=== PATIENT | female | born 1945 | race Two or more races ===

== ENCOUNTER 2024-10-20 09:37 | Outpatient (RCR) | payer MEDICAID, SELFPAY ==
--- NOTE | 2024-10-21 00:34 | CTCFLWUP_ITS ---
Patient: EDENILSON US : 1945 Page 3 of 4 FOLLOW UP NOTE DATE OF SERVICE: 10/20/2024 NAME: EDENILSON US ACCOUNT: [id number] : 1945 AGE: 79 INTERVAL HISTORY: Patient is doing well. She recently had a bone marrow biopsy. Patient is [place] Citizen-speaking and all c onversation was done with the help of street light cleaner Julian Edenilson. ONCOLOGY HISTORY: DIAGNOSIS: Acute myelomonocytic leukemia, not having achieved remission [ICD10] C92.50 DATE OF DIAGNOSIS: 12/01/2019 STAGE/TNM: Acute myeloid leukemia with NPM mutation TREATMENT HISTORY: Care?Plan Start?Date Cycle Day Intent Azacitadine 05/15/2020 1 28 Curative?(primary) KCL?20 06/15/2020 1 1 Palliative HISTORY OF PRESENT ILLNESS: Edenilson Elizabeth is a 79-year-old [place] speaking female with history of hypertension, hyperchol esterolemia and osteoporosis had a CBC drawn on 07/23/2019. WBC was 2.0, absolute neutrophil count w as 0.9. Hemoglobin 11.2, MCV 87, platelet count is 208,000. A hematology consultation is requested for neutropenia and leukopenia. 12/01/2019: WBC 1.7, ANC 0.7, hemoglobin 11.3, platelets 217,000. B12 467, folate more than 20.0. He patitis panel negative. ESR 19. LDH 180 12/28/2019: WBC 1.4, absolute neutrophil count 0.5, hemoglobin 11.1, platelets 207,000. 01/31/2020: WBC 1.2, absolute neutrophil count 0.3, immature cells 2%, hemoglobin 10.9, platelets 187, 000. Hepatitis panel negative. Iron saturation 27%. B12 361, folate more than 20.0. LDH 202, ESR 37. 01/31/2020: Ultrasound of the liver and spleen?liver measures 15.4 cm. The hepatic contour is smooth. No hepatosplenomegaly noted 02/29/2020: Bone marrow biopsy and aspiration- 03/05/2020: Patient received first cycle of azacitidine and venetoclax. 05/15/2020: Patient received second cycle of azacitidine and venetoclax. 05/31/2020: Bone marrow biopsy and aspiration? 06/20/2020: Patient received third cycle of venetoclax and azacitidine. 07/24/2020?08/06/2020: Patient was admitted to [facility] for sepsis. 09/29/2020: Patient completed fourth cycle of Vidaza in [place]. 08/27/2022: Bone marrow biopsy and aspiration? 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 acyclovir - 400 mg 1 tab Twice a Day 2. decitabine-cedazuridine - 35-100 mg 1 tab As directed 3. esomeprazole magnesium - 40 mg Capsule 4. levothyroxine - 88 mcg 1 Capsule Daily 5. losartan - 100 mg 1 tab Daily 6. Tibsovo - 250 mg 1 tab Daily 7. voriconazole - 200 mg Twice a Day Medications Last Reconciled by Edenilson Pagan MA on 10/20/2024 ALLERGIES: No Known Drug Allergies REVIEW OF SYSTEMS: A complete 14-point review of systems was performed and is negative except as noted in interval histo ry. PHYSICAL EXAMINATION: VITAL SIGNS: Temperature?98, B/P?150/84, Oxygen?Saturation?98% Weight?154.2?lbs PAIN: 0 - No pain ECOG Performance Status: 1 - Symptomatic; ambulatory; restricted in strenuous activity GENERAL APPEARANCE: Appears well, in no apparent distress, appropriately interactive. HEENT: Normocephalic, no temporal wasting, normal conjunctiva, no scleral icterus, normal hearing, li ps without lesions, neck normal range of motion. CARDIOVASCULAR: Not assessed. PULMONARY: Normal respiratory effort, no respiratory distress or use of accessory muscles, speaking i n full sentences, no tachypnea. EXTREMITIES: No pedal edema or cyanosis. SKIN: Normal skin appearance. NEUROLOGIC: Alert and oriented x4. PSHYCHIATRIC: Appropriate affect, mood normal, behavior normal, intact thought and speech. LABORATORY DATA: I have personally reviewed and interpreted each of the patient?s relevant lab tests, abnormal finding s are below: Date 07/24/23 ??GLUCOSE,RANDOM?(mg/dL) 99 ??BLOOD?UREA?NITROGEN?(mg/dL) 16 ??CREATININE?(mg/dL) 1.00 ??SODIUM?(mmol/L) 142 ??POTASSIUM?(mmol/L) 4.0 ??CHLORIDE?(mmol/L) 107 ??CrCl?(CandG)?(ml/min) 46.40 ??AST/SGOT?(Unit/L) 20 ??ALT/SGPT?(Unit/L) 10 ??ALKALINE?PHOSPHATASE?(Unit/L) 192?H ??BILIRUBIN,?TOTAL?(mg/dL) 0.3 ??PROTEIN?TOTAL?(gm/dl) 6.5 ??ALBUMIN,?SERUM?(gm/dl) 4.1 ??GLOBULIN?(gm/dl) 2.4 ??ALBUMIN/GLOBULIN?RATIO 1.7 ??CALCIUM,?SERUM?(mg/dL) 9.1 ??CALCIUM?SERUM?(CORRECTED)?(mg/dL) 9.1 ASSESSMENT/PLAN: 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 Roberto Ms. Us had bone marrow biopsy and aspiration done September 2024. She is in complete r emission. 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 Hypertension follow with the PCP Hypercholesterolemia follow with the PCP History of osteoporosis. Follow with the PCP RTC in 2 months CBC EKG RETURN TO CLINIC: 2 months with us but advised to follow-up with Dr. Roberto closely. BILLING AND COMPLIANCE: I reviewed external records from providers outside my specialty as summarized above. I spent a total of 50 minutes on this patient?s care on the day of their visit excluding time spent related to any bi lled procedures. This time includes time spent with the patient as well as time spent documenting in the medical record, reviewing patients records and tests, obtaining history, placing orders, communi cating with other healthcare professionals, counseling the patient, family or caregiver, and/or care coordination for the diagnoses above. Electronically Signed by: Erick Bolton MD T: 12:32 AM CC: PCP: Shama Liao Referring: Shama Liao This document was completed utilizing speech recognition software. Grammatical errors, random word in sertions, pronoun errors, and incomplete sentences are an occasional consequence of this system due t o software limitations, ambient noise, and hardware issues. Any formal questions or concerns about th e content, text or information contained within the body of this dictation should be directly address ed to the provider for clarification.
== END 2024-11-12 23:59 | disposition home or self-care (01) ==
LOC: SCTC 09:37
PROVIDERS: PCP Registered Nurse Community Health; Referring Provider Registered Nurse Community Health; Visit Provider Internal Medicine Hematology & Oncology
DX: C92.01 Acute myeloblastic leukemia, in remission (principal)
CPT/HCPCS: Q3014

== ENCOUNTER → 2024-11-02 | Outpatient (CLI) | payer MEDICAID, SELFPAY ==
--- NOTE | 2024-11-02 09:44 | EKG_ITS ---
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 : 1945 Requested By: Erick Bolton Order Number: [id number] Reading MD: Erick Bolton Measurements Intervals [place] Rate: 52 P: 68 NV: 164 QRS: -16 QRSD: 111 T: 56 QT: 450 QTc: 420 Interpretive Statements SINUS BRADYCARDIA LOW QRS VOLTAGE IN PRECORDIAL LEADS LEFT VENTRICULAR HYPERTROPHY AND ST-T CHANGE POSSIBLE ANTEROSEPTAL MYOCARDIAL INFARCTION , OF INDETERMINATE AGE Compared to ECG 04/26/2024 07:44:29 Low QRS voltage now present Left ventricular hypertrophy now present ST (T wave) deviation now present Myocardial infarct finding now present Sinus rhythm no longer present Left-axis deviation no longer present Left bundle-branch block no longer present /store/S0/[id number]/ecg/[id number].pdf
== END | disposition home or self-care (01) ==
PROVIDERS: PCP Family Medicine; Referring Provider Internal Medicine Hematology & Oncology; Visit Provider Internal Medicine Hematology & Oncology
DX: C92.50 Acute myelomonocytic leukemia, not having achieved remission (principal)
CPT/HCPCS: 93005

== ENCOUNTER 2024-11-15 10:56 | Inpatient (IN) | payer MEDICAID, SELFPAY ==
[2024-11-15] VITALS (8 sets, daily range): BP systolic 82–123; BP diastolic 49–68; PULSE 70–105; RESP 18–98; TEMP 36.2–39.1; O2SAT 95–100; BMI 29.5; BMI 29.7
--- NOTE | 2024-11-15 11:28 | XR_ITS ---
Examination: PA lateral chest 2 views TECHNIQUE: Upright PA lateral chest 2 views Exam date and time: November 15, 2024 1137 hours INDICATIONS: Coughing weakness this week. FINDINGS: Mild prominence left ventricle Moderate vascular congestion No lobar pneumonia or pulmonary edema Prominent osteopenia IMPRESSION: Moderate vascular congestion
--- NOTE | 2024-11-15 11:29 | PD.EDRME ---
Rapid Medical Screening Exam RME Arrival date/time: 11/15/24 10:56 79-year-old female presents emergency department with complaints of generalized bodyaches and fever Sepsis workup initiated Chief Complaint: Flu Like Symptoms Vital signs: Vital Signs Temperature 102.4 F H 11/15/24 11:13 Pulse Rate 105 H 11/15/24 11:13 Respiratory Rate 22 H 11/15/24 11:13 Blood Pressure 112/68 11/15/24 11:13 Pulse Oximetry (%) 95 11/15/24 11:13 Oxygen Delivery Method Room Air 11/15/24 11:13
[2024-11-15 12:05] LABS: Lactate (Lactic Acid) 1.7 mMol/L (0.4-2.0)
[2024-11-15] MEDS: ACETAMINOPHEN 500 MG TABLET 1000 MG PO (12:07)
[2024-11-15 12:37] LABS: Alanine Aminotransferase 118 U/L (10-49); Albumin, Serum 4.3 gm/dL (3.4-4.8); Albumin/Globulin Ratio 1.5 (1.2-2.2); Alkaline Phosphatase 148 U/L (46-116); Anion Gap 8 (7-16); Aspartate Amino Transferase 131 U/L (0-34); BUN/Creatinine Ratio 19 Ratio (12-20); Bilirubin,Total 1.1 mg/dL (0.3-1.2); Blood Urea Nitrogen 26 mg/dL (9-23); Calcium 8.8 mg/dL (8.3-10.6); Calcium (Corrected) 8.8 mg/dL (8.5-10.1); Carbon Dioxide 25.8 mMol/L (20.0-31.0); Chloride 100 mMol/L (98-107); Creatinine (Component) 1.4 mg/dL (0.6-1.3); Estimated Creatinine Clearance 27.3 mL/min (>60); Globulin 2.8 gm/dL (2.3-3.5); Glucose 104 mg/dL (74-106); Osmolality,Calculated 272 (275-295); Potassium 4.5 mMol/L (3.4-5.1); Procalcitonin 7.77 ng/ml (0.0-0.49); Sodium 134 mMol/L (136-145); Total Protein 7.1 gm/dL (5.7-8.2); eGFR 38 See Note
[2024-11-15 12:49] LABS: Collection Type, Urine Clean Catch
[2024-11-15 13:01] LABS: Bilirubin,Urine Negative (Negative); Blood,Urine 1+ (Negative); Clarity,Urine Turbid (Clear/Hazy); Color,Urine Yellow (Lt Yel-Yel); Glucose, Urine Negative (Negative); Ketones,Urine Negative (Negative); Leukocyte Esterase,Urine Negative (Negative); Nitrite,Urine Negative (Negative); Protein,Urine 1+ (Neg - Trace); RBC,Urine 16 /hpf (0-3); Specific Gravity,Urine 1.022 (1.001-1.035); Squamous Epithelial Cell,Urine 1 /hpf (0-5); WBC,Urine 2 /hpf (0-5)
[2024-11-15 13:34] LABS: Basophils % (Auto) 0 % (0-2.5); Eosinophils % (Auto) 0 % (0-10); Hematocrit 23.9 % (36.0-46.0); Immature Granulocytes % (Auto) 6 % (0-0); Immature Granulocytes Auto 0.02 Thou/mm3 (0.00-0.00); Lymphocytes # (Auto) 0.2 Thou/mm3 (1.0-4.8); Lymphocytes % (Auto) 57 % (10-50); Mean Corpuscular HGB Conc 33.1 g/dl (31.0-37.0); Mean Corpuscular Hemoglobin 30.6 pg (25.0-35.0); Mean Corpuscular Volume 93 fL (80-100); Monocytes % (Auto) 9 % (0-12); Neutrophils # (Auto) 0.1 Thou/mm3 (1.8-7.7); Neutrophils % (Auto) 29 % (37-80); Nucleated Red Blood Cell % 0 /100 WBC (0); RDW Standard Deviation 54.8 fL (36.4-46.3); Red Blood Count 2.58 Miln/mm3 (4.00-5.20)
[2024-11-15 13:43] LABS: Hemoglobin 7.9 g/dL (12.0-16.0); Platelet Count 67 Thou/mm3 (140-440); White Blood Count < 0.4 Thou/mm3 (3.6-11.0)
[2024-11-15 13:54] LABS: Slide Review Platelets confirmed
[2024-11-15] MEDS: PIPER/TAZO 3.375 GM 3.375 GM/50 ML BAG IV ×2 (15:03→22:16)
--- NOTE | 2024-11-15 15:08 | PC.NURSE ---
DR. BOOKER AND TEAM AT BEDSIDE ASSESSING PT.
--- NOTE | 2024-11-15 15:29 | XR_ITS ---
Examination: Ultrasound soft tissue right axilla TECHNIQUE: Sonographic images soft tissue right axilla Exam date and time: November 15, 2024 1558 hours INDICATIONS: Right axillary redness swelling and pain this week FINDINGS: No cystic or solid mass, no abscess depicted Mild skin edema IMPRESSION: No cystic or solid mass, no abscess identified
--- NOTE | 2024-11-15 15:39 | ESHP_ITS ---
<Statement entered by Tamy Cohen MD - 11/15/24 17:57> I discussed with and supervised my co-resident involved in the care of this patient. I agree with the assessment and plan as documented above. Patient is a 79 year old female with PMH of acute myelomonocytic leukemia on chemotherapy, aortic valve thrombosis, HTN HLD who presents to the ER for flu- like symptoms. She endorses some sick contacat home. On physical exam, she has some mild subcutaneous fluctuance/induration in the right axilla area, no weepage or drainage. Labs significant for pancytopenia and LIZ. Patient's oncologist, Dr. Martin, was called by the ER and the medicine team, and decision was made to admit the patient for neutropenic fever. We will treat her with IV antibiotics. Regarding source of infection, we will check urine, CXR, and ultrasound of the right axilla and follow up on the cultures. We will give her IVF for her LIZ. Tamy Cohen MD PGY-3 Documentation for date of: 11/15/24 HPI History of Present Illness Chief complaint: flu-like Sx, R axillary region erythema/swelling History of present illness: 79-year-old female with past medical history of acute myelomonocytic leukemia currently on chemotherapy, aortic valve thrombosis, hypertension, hypothyroidism, hyperlipidemia, and osteoporosis was admitted to the hospital on 11/15/2024 after coming to the ED with complaints of flulike symptoms. During assessment patient stated that around 8 days ago she started having some productive cough with subjective fevers as well as body aches. Daughter stated that she was sick and patient and her live together. Patient stated that yesterday she started having fevers and some nausea and today she decided to come to the ER as she was having a lot of discomfort in her right axillary area and was tender and red. Patient stated that she has not missed any doses of her prophylactic medications or of her chemotherapy. She denied having any vomiting at this time, burning sensation with urination, diarrhea, blood in the stools, shortness of breath, or chest pain. Spoke with patient's oncologist and stated that patient could be managed with broad-spectrum antibiotics for her fever, continue her prophylactic medications, and if patient does need blood transfusion it should be irradiated blood products. She also mentioned that patient does not need chemotherapy during this hospital stay. ED course: Initially patient came in tachycardic tachypneic and febrile. Initial labs were relevant for neutropenia (less than 0.4), low hemoglobin (10.9), thrombocytopenia (67), absolute neutrophil count of 0.1, LIZ (creatinine 1.4), transaminitis (AST 131, ALT 118, alkaline phosphatase 148), and elevated procalcitonin at 7.77. Initial imaging included chest x-ray which showed moderate vascular congestion and right upper extremity ultrasound which showed no cystic or solid mass nor abscess. PMH: As above Social Hx: Denies any smoking, drugs, or alcohol Medications: Acyclovir 400 mg twice daily, voriconazole 200 mg twice daily, levothyroxine 88 mcg daily, esomeprazole 40 mg daily, and rest of medications as pending reconciliation. Review of Systems Review of Systems Narrative Review of Systems: Constitutional: Denies sweats, Denies weight loss/gain, Admits fever, Denies chills. HEENT: Denies hearing loss, Denies ear pain, Denies postnasal drip, Denies double vision, Denies blurry vision. Respiratory: Denies shortness of breath, Admits cough, Denies wheezing. Cardiovascular: Denies chest pain, Denies palpitations, Denies sudden loss of consciousness. GI: Denies blood in stool, Denies constipation, Denies abdominal pain, Denies difficulty swallowing, Admits nausea, Denies vomit. : Denies urinary incontinence, Denies pain while urinating, Denies increased urinary frequency. MSK: Denies joint pain, Denies joint swelling, Denies numbness, Admits R underarm swelling/pain. Skin: Denies rash, Denies itching, Denies easy bruising. Neuro: Denies headaches, Denies dizziness, Denies seizures. Past Medical History Past Medical History CARDIAC: Positive Hypercholesterolemia and Hypertension RESPIRATORY: Positive Pneumonia GASTROINTESTINAL: Positive Gall Bladder Disease REPRODUCTIVE: Positive Previous Pregnancies MUSCULOSKELETAL: Positive Arthritis and Osteoporosis HEMATOLOGIC: Positive Anemia and Leukemia PSYCHO/SOCIAL: Positive Anxiety OTHER HISTORY: Positive Blood Transfusions, Chemotherapy (SEPTEMBER 2021 LAST [place]), Measles and Cancer (LEUKEMIA) Family History FAMILY HISTORY: Positive Family Cardiac Disorders Social History SMOKING STATUS: Never smoker SUBSTANCE USE: does not use ALCOHOL: Never Travel History EBOLA RISK: No Exam Vital Signs Temp Pulse Resp BP Pulse Ox O2 Del Method 98.0 F 81 20 82/52 L 96 Room Air 11/15/24 14:32 11/15/24 14:04 11/15/24 14:04 11/15/24 14:04 11/15/24 14:04 11/15/24 14:04 Narrative Exam General: A/O x3, no acute distress, well-nourished, well-developed Eyes: PERRL, EOMI. Anicteric, vision grossly intact. Ears: No ear pain, no ear discharge, Hearing grossly intact. Nose: No nasal discharge. Mouth/Throat: Moist mucous membranes, no redness, no lesions. Neck: Neck supple, non-tender, no cervical lymphadenopathy. Lungs: Clear STACEY to auscultation and percussion, No accessory muscle use. Cardio: Normal S1/S2, regular rhythm, no murmurs, no JVD Abdomen: Soft, non-tender, no palpable masses, peristalsis present, no guarding or rebound. Extremities: Symmetrical, no significant deformities, no peripheral edema , non-tender, peripheral pulses presents. Skin: No rashes, no lesions, warm to touch. Right axillary area erythema with mild edema and nonfluctuating mass centrally, tender to light palpation. Neuro: No focal neurological deficits. Psych: Cooperative, appropriate mood and effect. Results: Labs 11/18/24 04:39 11/18/24 04:39 Labs: Short CBC 11/15/24 Range/Units 13:08 WBC < 0.4 L* (3.6-11.0) Thou/mm3 Hgb 7.9 L (12.0-16.0) g/dL Hct 23.9 L (36.0-46.0) % Plt Count 67 L (140-440) Thou/mm3 BMP 11/15/24 11:49 Sodium 134 L Potassium 4.5 Chloride 100 Carbon Dioxide 25.8 BUN 26 H Creatinine 1.4 H Glucose 104 Calcium 8.8 Liver Function 11/15/24 Range/Units 11:49 Total Bilirubin 1.1 (0.3-1.2) mg/dL AST 131 H (0-34) U/L ALT 118 H (10-49) U/L Alkaline Phosphatase 148 H (46-116) U/L Albumin 4.3 (3.4-4.8) gm/dL Urine 11/15/24 Range/Units 12:18 Urine Color Yellow (Lt Yel-Yel) Urine Clarity Turbid A (Clear/Hazy) Urine pH 7.0 (5.0-7.0) Ur Specific [place] 1.022 (1.001-1.035) Urine Protein 1+ A (Neg - Trace) Urine Glucose (UA) Negative (Negative) Quality Measures Quality Measures VTE prophylaxis Advance care planning discussed with:: patient and child Medications Home Medications and Allergies Home Medications ?Medication ?Instructions ?Recorded ?Confirmed ?Type acyclovir 200 mg capsule 400 mg PO BID 03/15/2011/15 History levofloxacin 250 mg tablet 500 mg PO QDAY PRN ANC IS B LOW 500 03/15/20 10/28/23 History voriconazole 200 mg tablet (Vfend) 200 mg PO Q12H 01/0111/15/24 History carisoprodol 250 mg tablet 1 tab PO BID PRN Pain 03/2510/28/23 History diclofenac sodium 1 % topical gel 1 ea topical QID 10/28/23 History lidocaine 5 % topical patch 1 patch topical Q12H 03/2510/28/23 History losartan 100 mg tablet 1 tab PO QDAY PRN SBP 160 11/15/24 History acyclovir 400 mg tablet 400 mg PO BID 07/26/2310/28 History acyclovir 400 mg tablet mg 07/26/23 10/28/23 History levothyroxine 88 mcg tablet 88 mcg PO QDAY 07/26/23 History levothyroxine 88 mcg tablet 88 mcg PO QDAY 11/15/24 History (Synthroid) Allergies Allergy/AdvReac Type Severity Reaction Status Date / Time milk Allergy Verified 11/16/24 07:36 eggs Allergy Uncoded 11/16/24 07:36 Visit Medications Acetaminophen (Acetaminophen 325 Mg Tablet) 650 mg PO Q6H PRN PRN Reason: pain and Fever >100.4 Stop: 12/15/24 15:22 Hydrocodone Bitart/Acetaminophen (Hydrocodone/Apap 5/325 Tablet) 1 tab PO Q4HR PRN PRN Reason: PAIN SCALE 4-10(Mod-Sev Stop: 11/20/24 15:22 Acyclovir (Acyclovir 200 Mg Capsule) 400 mg PO BID [facility] Stop: 11/25/24 15:34 Heparin Sodium (Porcine) (Heparin Sod Inj 5000 Unit/Ml Vial) 5,000 unit SC BID [facility] Stop: 11/29/24 20:59 Sodium Chloride (Ns) 1,000 mls @ 75 mls/hr IV .[id number] [facility] Stop: 12/15/24 15:29 Piperacillin/Tazobactam/Dextrose (Zosyn) 3.375 gm in 50 mls @ 100 mls/hr IV Q8HR [facility] Stop: 11/22/24 22:59 Sodium Chloride (Ns) 1,000 mls @ 999 mls/hr IV .Q1H1M ONE Stop: 11/15/24 16:29 Levothyroxine Sodium (Levothyroxine Sodium 88 Mcg Tablet) 88 mcg PO ACBR [facility] Stop: 12/16/24 05:59 Ondansetron HCl (Ondansetron Inj 2 Mg/Ml Inj 2 Ml) 4 mg IV Q6H PRN; Protocol PRN Reason: NAUSEA OR VOMITING Stop: 12/15/24 15:22 Pantoprazole Sodium (Pantoprazole 40 Mg Tablet) 40 mg PO QDAY [facility] Stop: 12/16/24 08:59 Pharmacy Consult (Vancomycin Pharmacy To Dose 1 Each Each) 1 each IV QDAY PRN PRN Reason: CONSULT Stop: 12/15/24 15:29 Sennosides (Senna Tablet) 1 tab PO QDAY PRN; Protocol PRN Reason: constipation Stop: 12/15/24 15:22 Voriconazole (Voriconazole 200 Mg Tablet) 200 mg PO BID [facility] Stop: 11/22/24 20:59 Discontinued Medications Acetaminophen (Acetaminophen 500 Mg Tablet) 1,000 mg PO X1 ONE Stop: 11/15/24 11:29 Last Admin: 11/15/24 12:07 Dose: 1,000 mg Vancomycin HCl 1,000 mg/ (Sodium Chloride) 250 mls @ 150 mls/hr IV X1 ONE Stop: 11/15/24 15:57 Piperacillin/Tazobactam/Dextrose (Zosyn) 3.375 gm in 50 mls @ 100 mls/hr IV X1 ONE Stop: 11/15/24 14:46 Last Admin: 11/15/24 15:03 Dose: 100 mls/hr Acyclovir Sodium 700 mg/ (Sodium Chloride) 114 mls @ 100 mls/hr IV Q12HR [facility]; Protocol Stop: 11/15/24 15:39 Acyclovir Sodium 700 mg/ (Sodium Chloride) 114 mls @ 100 mls/hr IV Q12HR [facility]; Protocol Stop: 11/22/24 20:59 Sodium Chloride (Sodium Chloride Rt 10% 15 Ml Nebu) 5 ml INH X1 ONE Stop: 11/15/24 15:24 Assessment & Plan Plan 79-year-old female with past medical history of 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 Patient came in with complaints of bodyaches and cough as well as erythema and tenderness of right axillary area. ? Patient goes to [facility] when she follows up with oncologist, but she also followed up with oncologist at our cancer center. ? Patient met SIRS criteria 4 out of 4 she also had an LIZ indicating endorgan damage ? qSOFA of 2 points indicating high risk of in-hospital mortality ?Checks x-ray only show mild vascular congestion ? Patient's WBC was less than 0.4 and absolute neutrophil count was 0.1 ?Ultrasound of right axillary area did not show any abscess, Sa cystic or solid mass. ? COVID and influenza were both negative Plan: ? Start patient on vancomycin, pharmacy dose, and Zosyn [11/15/2024?] ? Restarted patient's acyclovir 400 mg twice daily and voriconazole 200 mg twice daily ? Gave 1 L bolus of normal saline and maintain his fluids at 75 cc/hr - Consider CT of R UE ? Blood and urine cultures ordered ?RSV ordered ? Neutropenic precautions ? Will continue to monitor #Pancytopenia ? Patient came in with hemoglobin 7.9, platelets 67, and WBCs of less than 0.4 ?Patient has a history of pancytopenia per chart review Plan: ? Will transfuse hemoglobin less than 7, use irradiated blood products only ?Heparin subcu twice daily as patient has increased risk of thrombosis given history of cancer. ?Bleeding precautions ? Will continue to monitor closely #LIZ ? Patient came in with creatinine of 1.4 ? Base creatinine 0.7 Plan: ? IV fluids ? Renally dose medication ? Avoid nephrotoxic agents ? Will continue monitor #Transaminitis ? Patient came in with AST 131, ALT 118, alkaline phosphatase 148 ? Patient does not have any right upper quadrant pain and is not jaundiced Plan: ?Hepatitis panel ordered ? Will continue to monitor #Hx of hypertension ? Holding BP medication given setting of sepsis and patient's blood pressure has been on the lower end. #Hx of aortic valve thrombosis ? Pending medication reconciliation #Hx of GERD ? Start patient on pantoprazole #Hx of hypothyroidism ? Restarted patient's levothyroxine 88 mcg daily Disposition: Patient admitted to med/tele for neutropenic fever in setting of Sepsis, continue Zosyn/Vanco, pending blood and urine cx. Diet: Regular GI prophylaxis: protonix DVT prophylaxis: Heparin Sc BID Code: Full code Case disclosed with Attending Dr. Santiago and My senior Dr. Cohen PGY3. Reilly Aguilar PGY1 Attending Provider Attestation/Addendum Face to face evaluation was performed by me. I have personally seen and examined the patient. I discussed the assessment and plan with the entire medicine team. I reviewed available medical records, imaging studies, laboratory results. I agree with the above subjective data, objective findings, assessment and plan except as corrected by me or noted below Neutropenic fever Suspect R chest wall cellulitis Broad spectrum Abx with Zosyn and empiric Vanco for MRSA coverage follow culture data neutropenic precautions US MSK for R chest area infection- no abscess looks like- consider repeat imaging in few days
[2024-11-15] MEDS: SODIUM CHLORIDE RT 10% 15 ML NEBU 5 ML INH (16:38)
[2024-11-15] MEDS: VANCOMYCIN/NS 1 GM IVPB 200 ML IV (17:07)
[2024-11-15] MEDS: SODIUM CHLORIDE 0.9% 1000 ML 1,000 ML 75 ML IV (17:09)
[2024-11-15] MEDS: SODIUM CHLORIDE 0.9% 1000 ML 1,000 ML 999 ML IV (17:12)
--- NOTE | 2024-11-15 18:36 | PD.EDADULT ---
ED General RME/HPI General Chief complaint: Flu Like Symptoms Stated complaint: FEVER, CHILLS, SHAKING Arrival date/time: 11/15/24 10:56 RME / HPI RME / HPI narrative: 11/15/24 10:56 79-year-old female presents emergency department with complaints of generalized bodyaches and fever Sepsis workup initiated DR. NICOLAS BURT ED EVALUATION 79 year old female with history of acute myelomonocytic leukemia undergoing chemotherapy, hypertension, hypothyroidism, hyperlipidemia presents to the ED for evaluation of body aches, chills, and global weakness today. Reportedly symptoms began ~ 1 week ago and not improving. Accompanied by a painful rash just underneath her right armpit beginning yesterday. Denies fevers today, chest pain, shortness of breath, abdominal pain, vomiting, diarrhea, constipation, or urinary symptoms. Related Data Home Medications ?Medication ?Instructions ?Recorded ?Confirmed acyclovir 200 mg capsule 400 mg PO BID 03/15/20 10/28/23 levofloxacin 250 mg tablet 500 mg PO QDAY PRN ANC IS BLOW 500 03/15/20 10/28/23 voriconazole 200 mg tablet (Vfend) 200 mg PO Q12H 10/15/21 10/28/23 carisoprodol 250 mg tablet 1 tab PO BID PRN Pain 03/25/22 10/28/23 diclofenac sodium 1 % topical gel 1 ea topical QID 03/25/22 10/28/23 lidocaine 5 % topical patch 1 patch topical Q12H 03/25/22 10/28/23 losartan 100 mg tablet 1 tab PO QDAY PRN SBP 160 03/25/22 10/28/23 acyclovir 400 mg tablet 400 mg PO BID 07/26/23 10/28/23 acyclovir 400 mg tablet mg 07/26/23 10/28/23 levothyroxine 88 mcg tablet 88 mcg PO QDAY 07/26/23 10/28/23 Previous Rx's ?Medication ?Instructions ?Recorded albuterol sulfate 90 mcg/actuation 2 puff inhalation Q6H PRN 10/17/21 aerosol inhaler (ProAir HFA) shortness of breath or wheezing #6.7 grams hydrocodone 5 mg-acetaminophen 325 1 tab PO Q6H PRN pain #10 tabs 03/25/22 mg tablet Allergies Allergy/AdvReac Type Severity Reaction Status Date / Time No Known Allergies Allergy Verified 11/15/24 11:01 Review of Systems Review of Systems Narrative Review of Systems: Gen: No fever, no chills, no weight loss, +body aches, +chills, +global weakness EYES: No discharge, no visual changes, no pain HEENT: No ear pain, no congestion, no sore throat PULM: no shortness of breath, no cough, no congestion CV: No chest pain, no dyspnea on exertion, no palpitations, no chest tightness GI: No nausea, no vomiting, no diarrhea, no pain, no constipation : No frequency, no urgency,? no dysuria Musc/skel: No joint pain, no back pain Skin: +painful rash just below right armpit, no ecchymosis, no lesions Neuro: +global weakness, no headache Past Medical History Past Medical History CARDIAC: Positive Hypercholesterolemia and Hypertension RESPIRATORY: Positive Pneumonia GASTROINTESTINAL: Positive Gall Bladder Disease REPRODUCTIVE: Positive Previous Pregnancies MUSCULOSKELETAL: Positive Arthritis and Osteoporosis HEMATOLOGIC: Positive Anemia and Leukemia PSYCHO/SOCIAL: Positive Anxiety OTHER HISTORY: Positive Blood Transfusions, Chemotherapy (SEPTEMBER 2021 LAST [place]), Measles and Cancer (LEUKEMIA) Family History FAMILY HISTORY: Positive Family Cardiac Disorders Social History SMOKING STATUS: Never smoker SUBSTANCE USE: does not use Travel History EBOLA RISK: No ED Exam Narrative Physical exam: GENERAL APPEARANCE: AxOx4, no obvious distress, nontoxic appearing HEENT: NC, AT. MMM. EOMI, clear conjunctiva, oropharynx clear. NECK: Supple without lymphadenopathy. No stiffness or restricted ROM. HEART: Normal rate and regular rhythm, normal S1/S1, no m/r/g LUNGS: CTAB, moving air well. No crackles or wheezes are heard. ABDOMEN: Soft, nontender, nondistended with good bowel sounds heard. BACK: No midline C/T/L spine pain or deformity, No CVAT, no obvious deformity. EXTREMITIES: Without cyanosis, clubbing or edema. MUSCULOSKELETAL: FROM of all major joints, no chest tenderness NEUROLOGICAL: Grossly nonfocal. Alert and oriented, moving all 4 extremities. CN not formally tested but appear grossly intact. Skin: Warm and dry. Over the right anterior axillary line at the level of breast she has a 6cm x 3cm tender well demarcated rash with centralized blistering consisted with shingles. Course Quality Measures none Orders Category Date Time Status Bedside COVID-19 Antigen Test NOW Care 11/15/24 11:28 Active Bedside Influenza A&B Antigen Test NOW Care 11/15/24 11:28 Completed Neutropenic precautions NOW Care 11/15/24 14:20 Active Consult to Oncology Stat Cons 11/15/24 14:33 Ordered XR chest 2V Stat Exams 11/15/24 11:28 Completed Blood Culture (Lab) Stat Lab 11/15/24 11:55 Received CBC Stat Lab 11/15/24 13:08 Completed Comprehensive Metabolic Panel Stat Lab 11/15/24 11:49 Completed Lactate (Lactic Acid) Stat Lab 11/15/24 11:49 Completed Procalcitonin Stat Lab 11/15/24 11:49 Completed Urinalysis Stat Lab 11/15/24 12:18 Completed Urine Culture Stat Lab 11/15/24 12:18 Received Acetaminophen Tab [Tylenol ES Tab] Med 11/15/24 11:28 Discontinued 1,000 mg PO X1 ONE Acyclovir Inj [Zovirax Inj] 700 mg Med 11/15/24 14:30 Discontinued Sodium Chloride 0.9% [Ns] 100 ml IV Q12HR Acyclovir Inj [Zovirax Inj] 700 mg Med 11/15/24 21:00 Discontinued Sodium Chloride 0.9% [Ns] 100 ml IV Q12HR Piper/Tazo 3.375 gm [Zosyn] Med 11/15/24 14:17 Discontinued 3.375 gm in 50 ml IV X1 Vancomycin Inj 1,000 mg Med 11/15/24 14:18 Discontinued Sodium Chloride 0.9% 250 ml [Ns] 250 ml IV X1 Vital Signs Vital signs: Vital Signs Temperature 102.4 F H 11/15/24 11:13 Pulse Rate 105 H 11/15/24 11:13 Respiratory Rate 22 H 11/15/24 11:13 Blood Pressure 112/68 11/15/24 11:13 Pulse Oximetry (%) 95 11/15/24 11:13 Oxygen Delivery Method Room Air 11/15/24 11:13 Pulse ox is 95% on room air which is adequate. [facility] Patient data External records reviewed:: [facility] previous records (I reviewed Dr. Bolton note on 10/21/2024) Clinical information provided by:: patient and family Social determinants that could affect healthcare access:: none Patient has the following chronic illnesses:: acute myelomonocytic leukemia undergoing chemotherapy, hypertension, hypothyroidism, hyperlipidemia How is presenting disease/condition affected by chronic disease/condition?: exacerbated by Evaluation data The following diagnostics were reviewed and interpreted by me:: lab results and radiology exam(s) Lab and/or radiology exams considered but not ordered:: None Interpretation Summary: Ordering Physician: Kurtis Nascimento NP, NP Date of Service: 11/15/24 Procedure(s): XR chest 2V Accession Number(s): [id number] cc: Azam TORRES),Kurtis ELLSWORTH; Isidoro Austin MD~ Examination: PA lateral chest 2 views TECHNIQUE: Upright PA lateral chest 2 views Exam date and time: November 15, 2024 1137 hours INDICATIONS: Coughing weakness this week. FINDINGS: Mild prominence left ventricle Moderate vascular congestion No lobar pneumonia or pulmonary edema Prominent osteopenia IMPRESSION: Moderate vascular congestion Dictated By: Isidoro Austin MD Signed By: <Electronically signed by Isidoro Austin MD in OV> 11/15/24 1143 Ordering Physician: Reilly Preston MD Date of Service: 11/15/24 Procedure(s): US extremity nonvascular LMTD Accession Number(s): [id number] cc: Shama Liao BROKER; Isidoro Austin MD; Reilly Preston MD~ Examination: Ultrasound soft tissue right axilla TECHNIQUE: Sonographic images soft tissue right axilla Exam date and time: November 15, 2024 1558 hours INDICATIONS: Right axillary redness swelling and pain this week FINDINGS: No cystic or solid mass, no abscess depicted Mild skin edema IMPRESSION: No cystic or solid mass, no abscess identified Dictated By: Isidoro Austin MD Signed By: <Electronically signed by Isidoro Austin MD in OV> 11/15/24 1620 Medications Medications considered but not ordered:: None Medication administrations:: Medication Administration History Acetaminophen (Acetaminophen 325 Mg Tablet) 650 mg PO Q6H PRN PRN Reason: pain and Fever >100.4 Stop: 12/15/24 15:22 Hydrocodone Bitart/Acetaminophen (Hydrocodone/Apap 5/325 Tablet) 1 tab PO Q4HR PRN PRN Reason: PAIN SCALE 4-10(Mod-Sev Stop: 11/20/24 15:22 Acyclovir (Acyclovir 200 Mg Capsule) 400 mg PO BID [facility] Stop: 11/25/24 15:34 Heparin Sodium (Porcine) (Heparin Sod Inj 5000 Unit/Ml Vial) 5,000 unit SC BID [facility] Stop: 11/29/24 20:59 Sodium Chloride (Ns) 1,000 mls @ 75 mls/hr IV .[id number] [facility] Stop: 11/16/24 04:49 Last Admin: 11/15/24 17:09 Dose: 75 mls/hr Documented By: DUNIA Piperacillin/Tazobactam/Dextrose (Zosyn) 3.375 gm in 50 mls @ 12.5 mls/hr IV Q8HR [facility]; Protocol Stop: 11/22/24 22:59 Levothyroxine Sodium (Levothyroxine Sodium 88 Mcg Tablet) 88 mcg PO ACBR [facility] Stop: 12/16/24 05:59 Ondansetron HCl (Ondansetron Inj 2 Mg/Ml Inj 2 Ml) 4 mg IV Q6H PRN; Protocol PRN Reason: NAUSEA OR VOMITING Stop: 12/15/24 15:22 Pantoprazole Sodium (Pantoprazole 40 Mg Tablet) 40 mg PO QDAY [facility] Stop: 12/16/24 08:59 Pharmacy Consult (Vancomycin Pharmacy To Dose 1 Each Each) 1 each IV QDAY PRN PRN Reason: CONSULT Stop: 12/15/24 15:29 Sennosides (Senna Tablet) 1 tab PO QDAY PRN; Protocol PRN Reason: constipation Stop: 12/15/24 15:22 Voriconazole (Voriconazole 200 Mg Tablet) 200 mg PO BID [facility] Stop: 11/22/24 20:59 Discontinued Medications Acetaminophen (Acetaminophen 500 Mg Tablet) 1,000 mg PO X1 ONE Stop: 11/15/24 11:29 Last Admin: 11/15/24 12:07 Dose: 1,000 mg Documented By: SHOBHA Vancomycin HCl 1,000 mg/ (Sodium Chloride) 250 mls @ 150 mls/hr IV X1 ONE Stop: 11/15/24 15:57 Last Admin: 11/15/24 16:52 Dose: Not Given Documented By: GM Non-Admin Reason: Discontinued Piperacillin/Tazobactam/Dextrose (Zosyn) 3.375 gm in 50 mls @ 100 mls/hr IV X1 ONE Stop: 11/15/24 14:46 Last Infusion: 11/15/24 15:40 Dose: Infused Documented By: Admin: 11/15/24 15:03 Dose: 100 mls/hr Documented By: GM Acyclovir Sodium 700 mg/ (Sodium Chloride) 114 mls @ 100 mls/hr IV Q12HR KAVON; Protocol Stop: 11/15/24 15:39 Last Admin: 11/15/24 16:53 Dose: Not Given Documented By: GM Non-Admin Reason: Discontinued Acyclovir Sodium 700 mg/ (Sodium Chloride) 114 mls @ 100 mls/hr IV Q12HR [facility]AVON; Protocol Stop: 11/22/24 20:59 Sodium Chloride (Ns) 1,000 mls @ 999 mls/hr IV .Q1H1M ONE Stop: 11/15/24 16:29 Last Admin: 11/15/24 17:12 Dose: 999 mls/hr Documented By: GM Vancomycin/Sodium Chloride (Vancomycin/Ns 1 Gm Ivpb) 200 mls @ 120 mls/hr IV X1 ONE Stop: 11/15/24 17:39 Last Admin: 11/15/24 17:07 Dose: 120 mls/hr Documented By: GM Sodium Chloride (Sodium Chloride Rt 10% 15 Ml Nebu) 5 ml INH X1 ONE Stop: 11/15/24 15:24 Last Admin: 11/15/24 16:38 Dose: 5 ml Documented By: BA See above Consultations Consultation(s) initiated? (list below): Yes Consultation #1 (Physician, Specialty, Details): I spoke with oncologist. Dr. Bolton. Discussed patients PMHx, HPI, ED course, exam findings, labs, and radiology results. She agrees to consult. Consultation #2 (Physician, Specialty, Details): I spoke with hospitalist team. Discussed patients PMHx, HPI, ED course, exam findings, labs, and radiology results. The hospitalist agree to accept the patient for admission. Diagnosis Differential Diagnosis ED Complaint MDM: Anemia, viral illness, influenza, pneumonia Most likely diagnosis given after review of the tests above:: neutropenic fever severe neutropenia shingles Admission Indicated Admission indicated?: indicated Explain why admission is indicated or not indicated:: Further evaluation and management of neutropenic fever and severe . neutropenia Admission Request Was there a request for admission?: Yes Admission Attestation Admission request attestation: Discussed case with [] from Hospitalist service regarding admission. Discussed patients ED course, exam findings, labs, and radiology results. The Hospitalist [agrees,declines] to accept the patient for admission. Disposition Plan Disposition Plan: Admit Medical Decision Making Differential Diagnosis Differential Diagnosis: Anemia, viral illness, influenza, pneumonia Lab Data 11/15/24 13:08 11/15/24 11:49 Labs: Lab Results 11/15/24 11/15/24 11/15/24 Range/Units 11:49 12:18 13:08 WBC < 0.4 L* (3.6-11.0) Thou/mm3 RBC 2.58 L (4.00-5.20) Miln/mm3 Hgb 7.9 L (12.0-16.0) g/dL Hct 23.9 L (36.0-46.0) % MCV 93 (80-100) fL MCH 30.6 (25.0-35.0) pg MCHC 33.1 (31.0-37.0) g/dl RDW Std Deviation 54.8 H (36.4-46.3) fL Plt Count 67 L (140-440) Thou/mm3 Neut % (Auto) 29 L (37-80) % Lymph % (Auto) 57 H (10-50) % [place] % (Auto) 9 (0-12) % Eos % (Auto) 0 (0-10) % Baso % (Auto) 0 (0-2.5) % Neut # (Auto) 0.1 L (1.8-7.7) Thou/mm3 Lymph # (Auto) 0.2 L (1.0-4.8) Thou/mm3 [place] # (Auto) 0.0 (0.0-0.8) Thou/mm3 Eos # (Auto) 0.0 (0.0-0.5) Thou/mm3 Baso # (Auto) 0.0 (0.0-0.2) Thou/mm3 Immature Gran # (Auto) 0.02 H (0.00-0.00) Thou/mm3 Absolute Nucleated RBC 0.00 (0.00-0.00) Thou/mm3 Immature Gran % 6 H (0-0) % Nucleated RBC % 0 (0) /100 WBC Sodium 134 L (136-145) mMol/L Potassium 4.5 (3.4-5.1) mMol/L Chloride 100 (98-107) mMol/L Carbon Dioxide 25.8 (20.0-31.0) mMol/L Anion Gap 8 (7-16) BUN 26 H (9-23) mg/dL Creatinine 1.4 H (0.6-1.3) mg/dL Estim Creat Clear Calc 27.3 L (>60) mL/min eGFR 38 L (60 - ) See Note BUN/Creatinine Ratio 19 (12-20) Ratio Glucose 104 (74-106) mg/dL Calculated Osmolality 272 L (275-295) Lactic Acid 1.7 (0.4-2.0) mMol/L Calcium 8.8 (8.3-10.6) mg/dL Corrected Calcium 8.8 (8.5-10.1) mg/dL Total Bilirubin 1.1 (0.3-1.2) mg/dL AST 131 H (0-34) U/L ALT 118 H (10-49) U/L Alkaline Phosphatase 148 H (46-116) U/L Total Protein 7.1 (5.7-8.2) gm/dL Albumin 4.3 (3.4-4.8) gm/dL Globulin 2.8 (2.3-3.5) gm/dL Albumin/Globulin Ratio 1.5 (1.2-2.2) Procalcitonin 7.77 H (0.0-0.49) ng/ml Ur Collection Type Clean Catch Urine Color Yellow (Lt Yel-Yel) Urine Clarity Turbid A (Clear/Hazy) Urine pH 7.0 (5.0-7.0) Ur Specific [place] 1.022 (1.001-1.035) Urine Protein 1+ A (Neg - Trace) Urine Glucose (UA) Negative (Negative) Urine Ketones Negative (Negative) Urine Blood 1+ A (Negative) Urine Nitrite Negative (Negative) Urine Bilirubin Negative (Negative) Urine Urobilinogen (Auto) 2.0 (0.0-1.0) mg/dL Ur Leukocyte Esterase Negative (Negative) Urine RBC 16 H (0-3) /hpf Urine WBC 2 (0-5) /hpf Ur Squamous Epith Cells 1 (0-5) /hpf Urine Bacteria None (None) Misc Test Result Platelets confirmed Critical Care Time Critical Care Time Critical Care Time: Yes Total Critical Care Time (min.): 35 Attestation: The high probability of sudden, clinically significant deterioration in the patient's condition required the highest level of my preparedness to intervene urgently. The services I provided to this patient were to treat and/or prevent clinically significant deterioration. Services included the following: chart data review, reviewing nursing notes and/or old charts, documentation time, building performance consultant collaboration regarding findings and treatment options, medication orders and management, direct patient care, vital sign assessments and ordering, interpreting and reviewing diagnostic studies and lab tests. Aggregate critical care time includes only time during which I was engaged in work directly related to the patient's care, as described above, whether at bedside or elsewhere in the Emergency Department. It did not include time spent performing other reported procedures or the services of residents, students, nurses or physician assistants. Discharge Plan Plan Patient Disposition: Admit Acute Care w/in Hospital Problem List Clinical Impression: Neutropenic fever, Severe neutropenia, Shingles
[2024-11-15 18:49] LABS: Hepatitis A Antibody IgM Non Reactive (Non React); Hepatitis B Core Antibody IgM Non Reactive (Non React); Hepatitis B Surface Antigen Non Reactive (Non React); Hepatitis C Antibody Non Reactive (Non React)
[2024-11-15] MEDS: HEPARIN SOD INJ 5000 UNIT/ML VIAL SC (22:27)
[2024-11-15] MEDS: ACYCLOVIR 200 MG CAPSULE 400 MG PO (23:08)
[2024-11-16] VITALS (15 sets, daily range): BP systolic 110–159; BP diastolic 60–84; PULSE 68–88; RESP 16–98; TEMP 36.5–38.2; O2SAT 95–98; BMI 29.9
[2024-11-16] MEDS: LEVOTHYROXINE SODIUM 88 MCG TABLET PO (05:40)
[2024-11-16] MEDS: PIPER/TAZO 3.375 GM 3.375 GM/50 ML BAG IV ×3 (05:41→22:01)
[2024-11-16 06:12] LABS: Basophils % (Auto) 0 % (0-2.5); Eosinophils % (Auto) 4 % (0-10); Immature Granulocytes % (Auto) 0 % (0-0); Lymphocytes # (Auto) 0.4 Thou/mm3 (1.0-4.8); Lymphocytes % (Auto) 78 % (10-50); Mean Corpuscular HGB Conc 33.2 g/dl (31.0-37.0); Mean Corpuscular Hemoglobin 30.6 pg (25.0-35.0); Mean Corpuscular Volume 92 fL (80-100); Monocytes % (Auto) 4 % (0-12); Neutrophils # (Auto) 0.1 Thou/mm3 (1.8-7.7); Neutrophils % (Auto) 15 % (37-80); Nucleated Red Blood Cell % 0 /100 WBC (0); RDW Standard Deviation 55.6 fL (36.4-46.3); Red Blood Count 2.09 Miln/mm3 (4.00-5.20)
[2024-11-16 06:15] LABS: Hematocrit 19.3 % (36.0-46.0); Hemoglobin 6.4 g/dL (12.0-16.0); Platelet Count 55 Thou/mm3 (140-440); White Blood Count 0.6 Thou/mm3 (3.6-11.0)
[2024-11-16 07:07] LABS: Alanine Aminotransferase 61 U/L (10-49); Albumin, Serum 3.5 gm/dL (3.4-4.8); Albumin/Globulin Ratio 1.5 (1.2-2.2); Alkaline Phosphatase 107 U/L (46-116); Anion Gap 9 (7-16); Aspartate Amino Transferase 45 U/L (0-34); BUN/Creatinine Ratio 21 Ratio (12-20); Bilirubin,Total 0.5 mg/dL (0.3-1.2); Blood Urea Nitrogen 23 mg/dL (9-23); Calcium 8.2 mg/dL (8.3-10.6); Calcium (Corrected) 8.6 mg/dL (8.5-10.1); Carbon Dioxide 21.8 mMol/L (20.0-31.0); Chloride 108 mMol/L (98-107); Creatinine (Component) 1.1 mg/dL (0.6-1.3); Estimated Creatinine Clearance 33.9 mL/min (>60); Globulin 2.3 gm/dL (2.3-3.5); Glucose 82 mg/dL (74-106); Magnesium 1.6 mg/dL (1.6-2.6); Osmolality,Calculated 280 (275-295); Potassium 3.9 mMol/L (3.4-5.1); Sodium 139 mMol/L (136-145); Thyroid Stimulating Hormone 5.04 uIU/mL (0.55-4.78); Total Protein 5.8 gm/dL (5.7-8.2); eGFR 50 See Note
[2024-11-16 07:23] LABS: Cardiac Risk Estimate 8.5 RATIO (3.7-5.6); Cholesterol 153 mg/dL (132-200); HDL Cholesterol 18 mg/dL (40-60); LDL Cholesterol,Calculated 95 mg/dL (0-130); Triglycerides 199 mg/dL (30-150)
[2024-11-16] MEDS: PANTOPRAZOLE 40 MG TABLET PO ×2 (08:22)
[2024-11-16 08:38] LABS: Respiratory Syncytial Virus Ag Negative (Negative)
--- NOTE | 2024-11-16 09:40 | PC.SS ---
Patient Monie Elizabeth is a 79 Year old female admitted for Neutropenic fever, Sepsis 2/2, Cellulitis. SS contacted patient's daughter, Florinda Horner via phone in order to complete ADL's independently. Florinda reports she is surrogate decision maker [phone]. She reports patient utilizes a Cane to assist with ambulation as well as utilizes a FWW when she away from home. Patient is able to complete all ADL's independently. Choice of pharmacy is [facility]. Patient's PCP is Amador Joshua. At time of discharge patient will return home. Patient's daughter will provide transportation. Next of kin: Florinda Gooden Discharge Plan: Home
[2024-11-16 09:59] LABS: Free T4 (Free Thyroxine) 1.45 ng/dL (0.89-1.76)
[2024-11-16] MEDS: ACYCLOVIR 200 MG CAPSULE 400 MG PO ×2 (10:07→22:01)
[2024-11-16] MEDS: VORICONAZOLE 200 MG TABLET PO ×2 (10:07→22:01)
[2024-11-16 11:18] LABS: Slide Review Platelets confirmed
[2024-11-16 11:21] LABS: Path Review Blood Smear Sent to Pathologist
[2024-11-16] MEDS: Vancomycin Inj 750 MG in SODIUM CHLORIDE 0.9% 250 ML 250 ML 200 MG IV (13:19)
--- NOTE | 2024-11-16 13:31 | ESPR_ITS ---
<Statement entered by Tamy Cohen MD - 11/16/24 15:27> I discussed with and supervised my co-resident involved in the care of this patient. I agree with the assessment and plan as documented above. Patient seen at bedside. Hemoglobin dropped to 6.4, so a unit of irradiated PRBC ordered. Patient had fever earlier this afternoon, so repeat cultures ordered. Initial cultures from admission are pending. Rash over right axilla stable in appearance, mild tenderness to palpation. Continuing IV antibiotics. LIZ improved. Will start neuprogen, per oncologist recommendation. Tamy Cohen MD PGY-3 Documentation for date of: 11/16/24 Subjective Subjective Interval history: Patient was seen at bedside this morning. No overnight events. Patient spiked a fever at noon time. Blood cultures have been negative in the first 24 hours, will repeat blood cx. Patient had a hemoglobin of 6.4 this morning and 1 unit of PRBC irradiated was transfused with another unit ready in the case of requiring another unit of PRBC. She had no other complaints at this time. Patient's axillary area cellulitis appears to be improving with decreased pain. Patient's platelets were also low at 55 therefore held chemical DVT prophylaxis. Will continue to monitor. Exam Vital Signs Temp Pulse Resp BP Pulse Ox O2 Del Method 100.8 F H 87 20 147/77 H 96 Room Air 11/16/24 12:35 11/16/24 12:35 11/16/24 12:35 11/16/24 12:35 11/16/24 12:35 11/16/24 11:45 Narrative Exam General: A/O x3, no acute distress, well-nourished, well-developed Eyes: PERRL, EOMI. Anicteric, vision grossly intact. Ears: No ear pain, no ear discharge, Hearing grossly intact. Nose: No nasal discharge. Mouth/Throat: Moist mucous membranes, no redness, no lesions. Neck: Neck supple, non-tender, no cervical lymphadenopathy. Lungs: Clear STACEY to auscultation and percussion, No accessory muscle use. Cardio: Normal S1/S2, regular rhythm, no murmurs, no JVD Abdomen: Soft, non-tender, no palpable masses, peristalsis present, no guarding or rebound. Extremities: Symmetrical, no significant deformities, no peripheral edema , non-tender, peripheral pulses presents. Skin: No rashes, no lesions, warm to touch. Right axillary area erythema with mild edema and nonfluctuating mass centrally,non-tender today and improving . Neuro: No focal neurological deficits. Psych: Cooperative, appropriate mood and effect. Objective Labs 11/18/24 04:39 11/18/24 04:39 Labs: Laboratory Results - last 24 hr 11/15/24 11/16/24 11/16/24 13:08 05:26 06:00 WBC < 0.4 L* 0.6 L* D RBC 2.58 L 2.09 L Hgb 7.9 L 6.4 L* Hct 23.9 L 19.3 L* MCV 93 92 MCH 30.6 30.6 MCHC 33.1 33.2 RDW Std Deviation 54.8 H 55.6 H Plt Count 67 L 55 L Neut % (Auto) 29 L 15 L Lymph % (Auto) 57 H 78 H [place] % (Auto) 9 4 Eos % (Auto) 0 4 Baso % (Auto) 0 0 Neut # (Auto) 0.1 L 0.1 L Lymph # (Auto) 0.2 L 0.4 L [place] # (Auto) 0.0 0.0 Eos # (Auto) 0.0 0.0 Baso # (Auto) 0.0 0.0 Immature Gran # (Auto) 0.02 H 0.00 Absolute Nucleated RBC 0.00 0.00 Immature Gran % 6 H 0 Nucleated RBC % 0 0 Smear Path Review Sent to Pathologist Sodium 139 Potassium 3.9 D Chloride 108 H Carbon Dioxide 21.8 Anion Gap 9 BUN 23 Creatinine 1.1 Estim Creat Clear Calc 33.9 L eGFR 50 L BUN/Creatinine Ratio 21 H Glucose 82 Calculated Osmolality 280 Calcium 8.2 L Corrected Calcium 8.6 Magnesium 1.6 Total Bilirubin 0.5 D AST 45 H ALT 61 H Alkaline Phosphatase 107 D Total Protein 5.8 Albumin 3.5 D Globulin 2.3 Albumin/Globulin Ratio 1.5 Triglycerides 199 H Cholesterol 153 LDL Cholesterol, Calc 95 HDL Cholesterol 18 L Cholesterol/HDL Ratio 8.5 H TSH 5.04 H Free T4 1.45 Hepatitis A IgM Ab Non Reactive Hep Bs Antigen Non Reactive Hep B Core IgM Ab Non Reactive Hepatitis C Antibody Non Reactive RSV Rapid Negative Misc Test Result Platelets confirmed Platelets confirmed Blood Type Antibody Screen Crossmatch Blood Bank Wristband ID 11/16/24 07:15 WBC RBC Hgb Hct MCV MCH MCHC RDW Std Deviation Plt Count Neut % (Auto) Lymph % (Auto) [place] % (Auto) Eos % (Auto) Baso % (Auto) Neut # (Auto) Lymph # (Auto) [place] # (Auto) Eos # (Auto) Baso # (Auto) Immature Gran # (Auto) Absolute Nucleated RBC Immature Gran % Nucleated RBC % Smear Path Review Sodium Potassium Chloride Carbon Dioxide Anion Gap BUN Creatinine Estim Creat Clear Calc eGFR BUN/Creatinine Ratio Glucose Calculated Osmolality Calcium Corrected Calcium Magnesium Total Bilirubin AST ALT Alkaline Phosphatase Total Protein Albumin Globulin Albumin/Globulin Ratio Triglycerides Cholesterol LDL Cholesterol, Calc HDL Cholesterol Cholesterol/HDL Ratio TSH Free T4 Hepatitis A IgM Ab Hep Bs Antigen Hep B Core IgM Ab Hepatitis C Antibody RSV Rapid Misc Test Result Blood Type O Positive Antibody Screen NEGATIVE Crossmatch See Detail Blood Bank Wristband ID Yes Quality Measures Quality Measures none Advance care planning discussed with:: patient Assessment & Plan Assessment Current Active Medications: Generic Name Dose Route Start Last Admin Trade Name Freq PRN Reason Stop Dose Admin Acetaminophen 650 mg 11/16/24 08:45 Acetaminophen 325 Mg Tablet PO 12/15/24 15:22 Q6H PRN pain and Fever >100.4 Hydrocodone Bitart/Acetaminophen 1 tab 11/15/24 15:23 Hydrocodone/Apap 5/325 Tablet PO 11/20/24 15:22 Q4HR PRN PAIN SCALE 4-10(Mod-Sev Acyclovir 400 mg 11/15/24 21:00 11/16/24 10:07 Acyclovir 200 Mg Capsule PO 11/25/24 15:34 400 mg BID KAVON Administration Heparin Sodium (Porcine) 5,000 unit 11/15/24 21:00 11/16/24 10:08 Heparin Sod Inj 5000 Unit/Ml Vial SC 11/29/24 20:59 Not Given BID KAVON Piperacillin/Tazobactam/Dextrose 3.375 gm in 50 mls @ 12.5 mls/hr 11/15/24 23:00 11/16/24 05:41 Zosyn IV 11/22/24 22:59 12.5 mls/hr Q8HR KAVON Administration Protocol Vancomycin HCl 750 mg/ Sodium 250 mls @ 200 mls/hr 11/16/24 10:00 11/16/24 13:19 Chloride IV 11/23/24 09:59 200 mls/hr Q24H KAVON Administration Levothyroxine Sodium 88 mcg 11/16/24 06:00 11/16/24 05:40 Levothyroxine Sodium 88 Mcg Tablet PO 12/16/24 05:59 88 mcg ACBR KAVON Administration Ondansetron HCl 4 mg 11/15/24 15:23 Ondansetron Inj 2 Mg/Ml Inj 2 Ml IV 12/15/24 15:22 Q6H PRN NAUSEA OR VOMITING Protocol Pantoprazole Sodium 40 mg 11/16/24 09:00 11/16/24 08:22 Pantoprazole 40 Mg Tablet PO 12/16/24 08:59 40 mg QDAY KAVON Administration Pharmacy Consult 1 each 11/15/24 15:30 Vancomycin Pharmacy To Dose 1 Each Each IV 12/15/24 15:29 QDAY PRN CONSULT Sennosides 1 tab 11/15/24 15:23 Senna Tablet PO 12/15/24 15:22 QDAY PRN constipation Protocol Voriconazole 200 mg 11/15/24 21:00 11/16/24 10:07 Voriconazole 200 Mg Tablet PO 11/22/24 20:59 200 mg BID KAVON Administration Plan 79-year-old female with past medical history of 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 Patient came in with complaints of bodyaches and cough as well as erythema and tenderness of right axillary area. ? Patient goes to [facility] when she follows up with oncologist, but she also followed up with oncologist at our cancer center. ? Patient met SIRS criteria 4 out of 4 she also had an LIZ indicating endorgan damage ? qSOFA of 2 points indicating high risk of in-hospital mortality ?Checks x-ray only show mild vascular congestion ? Patient's WBC was less than 0.4 and absolute neutrophil count was 0.1 on admission ?Ultrasound of right axillary area did not show any abscess, cystic or solid mass. ? COVID and influenza were both negative Plan: ? Continue patient on vancomycin, pharmacy dose, and Zosyn [11/15/2024?] ? Continue patient's acyclovir 400 mg twice daily and voriconazole 200 mg twice daily ? Blood and urine cultures pending - repeat blood cx ? Neutropenic precautions ? Will continue to monitor #Pancytopenia ? Patient came in with hemoglobin 7.9, platelets 67, and WBCs of less than 0.4 ?Patient has a history of pancytopenia per chart review - hemoglobin 6.4, platelets 55, and WBCs of 0.6 today -Ordered 2 units of irradiated PRBC - Patient asymptomatic Plan: ? Will transfuse 1 unit of PRBC and then post H/H before transfusing second unit. ?Heparin subcu held due to low platelets ?Bleeding precautions ? Will continue to monitor closely #LIZ, improving ? Patient came in with creatinine of 1.4 ? Base creatinine 0.7 -Cr 1.1 today Plan: ? Renally dose medication ? Avoid nephrotoxic agents ? Will continue monitor #Transaminitis ? Patient came in with AST 131, ALT 118, alkaline phosphatase 148 ? Patient does not have any right upper quadrant pain and is not jaundiced -AST 45, ALT 61, alkaline phosphatase 107 today -Hep panel negative Plan: ? Will continue to monitor #Hx of hypertension ? Holding BP medication given setting of sepsis and patient's blood pressure has been on the lower end. #Hx of aortic valve thrombosis ? Pending medication reconciliation #Hx of GERD ? Continue patient on pantoprazole #Hx of hypothyroidism ? Continue patient's levothyroxine 88 mcg daily Disposition: Patient admitted to med/tele for neutropenic fever in setting of Sepsis, continue Zosyn/Vanco,spiked fever, repeat blood cx, transfuse 1 PRBC irradiated. Diet: Regular GI prophylaxis: protonix DVT prophylaxis: Heparin Sc BID (held low platelets) Code: Full code Case disclosed with Attending Dr. Santiago and My senior Dr. Cohen PGY3. Reilly Aguilar PGY1 Attending Provider Attestation/Addendum Face to face evaluation was performed by me. I have personally seen and examined the patient. I discussed the assessment and plan with the entire medicine team. I reviewed available medical records, imaging studies, laboratory results. I agree with the above subjective data, objective findings, assessment and plan except as corrected by me or noted below Neutropenic fever Suspect R chest wall cellulitis Pt was startd on Broad spectrum Abx with Zosyn and empiric Vanco for MRSA coverage follow culture data neutropenic precautions US MSK for R chest area infection- no abscess looks like- consider repeat imaging in few days
[2024-11-16 14:50] LABS: Cocci Serology, IgM Negative (Negative)
[2024-11-16 16:30] LABS: Hematocrit 25.1 % (36.0-46.0)
[2024-11-16 17:46] LABS: Hemoglobin 8.2 g/dL (12.0-16.0)
[2024-11-16] MEDS: HEPARIN SOD INJ 5000 UNIT/ML VIAL SC (22:01)
[2024-11-16] MEDS: HYDROcodone/APAP 5/325 TABLET 1 TAB PO (22:23)
[2024-11-17] VITALS (9 sets, daily range): BP systolic 111–155; BP diastolic 51–76; PULSE 20–75; RESP 16–95; TEMP 35.9–37.1; O2SAT 95–97; BMI 29.8
[2024-11-17] MEDS: LEVOTHYROXINE SODIUM 88 MCG TABLET PO (05:44)
[2024-11-17] MEDS: PIPER/TAZO 3.375 GM 3.375 GM/50 ML BAG IV (05:44)
[2024-11-17 06:06] LABS: Basophils % (Auto) 0 % (0-2.5); Eosinophils % (Auto) 1 % (0-10); Immature Granulocytes % (Auto) 0 % (0-0); Lymphocytes # (Auto) 0.5 Thou/mm3 (1.0-4.8); Lymphocytes % (Auto) 69 % (10-50); Mean Corpuscular Hemoglobin 30.3 pg (25.0-35.0); Mean Corpuscular Volume 92 fL (80-100); Monocytes # (Auto) 0.1 Thou/mm3 (0.0-0.8); Monocytes % (Auto) 8 % (0-12); Neutrophils # (Auto) 0.2 Thou/mm3 (1.8-7.7); Neutrophils % (Auto) 22 % (37-80); Nucleated Red Blood Cell % 0 /100 WBC (0); RDW Standard Deviation 57.2 fL (36.4-46.3); Red Blood Count 2.51 Miln/mm3 (4.00-5.20)
[2024-11-17 06:10] LABS: Hemoglobin 7.6 g/dL (12.0-16.0); Platelet Count 49 Thou/mm3 (140-440); White Blood Count 0.7 Thou/mm3 (3.6-11.0)
[2024-11-17 07:05] LABS: Alanine Aminotransferase 51 U/L (10-49); Albumin, Serum 3.4 gm/dL (3.4-4.8); Albumin/Globulin Ratio 1.4 (1.2-2.2); Alkaline Phosphatase 128 U/L (46-116); Anion Gap 9 (7-16); Aspartate Amino Transferase 55 U/L (0-34); BUN/Creatinine Ratio 19 Ratio (12-20); Blood Urea Nitrogen 19 mg/dL (9-23); Calcium 8.4 mg/dL (8.3-10.6); Calcium (Corrected) 8.9 mg/dL (8.5-10.1); Carbon Dioxide 23.5 mMol/L (20.0-31.0); Chloride 108 mMol/L (98-107); Estimated Creatinine Clearance 37.3 mL/min (>60); Globulin 2.4 gm/dL (2.3-3.5); Glucose 96 mg/dL (74-106); Magnesium 1.9 mg/dL (1.6-2.6); Osmolality,Calculated 281 (275-295); Potassium 3.6 mMol/L (3.4-5.1); Sodium 140 mMol/L (136-145); Total Protein 5.8 gm/dL (5.7-8.2); eGFR 57 See Note
[2024-11-17] MEDS: PANTOPRAZOLE 40 MG TABLET PO (09:24)
[2024-11-17] MEDS: VORICONAZOLE 200 MG TABLET PO ×2 (09:26→21:53)
[2024-11-17] MEDS: ACYCLOVIR 200 MG CAPSULE 400 MG PO ×2 (09:26→21:53)
[2024-11-17] MEDS: HEPARIN SOD INJ 5000 UNIT/ML VIAL SC (09:26)
[2024-11-17] MEDS: Vancomycin Inj 750 MG in SODIUM CHLORIDE 0.9% 250 ML 250 ML 200 MG IV (09:44)
[2024-11-17 09:46] LABS: Slide Review Platelets confirmed
--- NOTE | 2024-11-17 10:14 | ESPR_ITS ---
<Statement entered by Tamy Cohen MD - 11/17/24 16:23> I discussed with and supervised my co-resident involved in the care of this patient. I agree with the assessment and plan as documented above. No acute events overnight. Afebrile overnight. Patient to start on filgrastim today. Pending cultures. Continuing IV antibiotics. Tamy Cohen MD PGY-3 Documentation for date of: 11/17/24 Subjective Subjective Interval history: Patient was seen at bedside this morning. She did not spike any fevers overnight. Still pending blood and urine cultures. Patient's hemoglobin went down from 8.2 after the transfusion to 7.6 this morning. Spoke to patient's oncologist regarding starting filgrastim and stated 300mcg daily until ANC above 2000. The patient's cellulitis did spread beyond the demarcated borders, but is less tender today. Consulted ID. Patient does not have any other complaints at this time. Exam Vital Signs Temp Pulse Resp BP Pulse Ox O2 Del Method 98.7 F 63 17 134/59 H 96 Room Air 11/17/24 08:00 11/17/24 08:00 11/17/24 08:00 11/17/24 08:00 11/17/24 08:00 11/17/24 08:00 Narrative Exam General: A/O x3, no acute distress, well-nourished, well-developed Eyes: PERRL, EOMI. Anicteric, vision grossly intact. Ears: No ear pain, no ear discharge, Hearing grossly intact. Nose: No nasal discharge. Mouth/Throat: Moist mucous membranes, no redness, no lesions. Neck: Neck supple, non-tender, no cervical lymphadenopathy. Lungs: Clear STACEY to auscultation and percussion, No accessory muscle use. Cardio: Normal S1/S2, regular rhythm, no murmurs, no JVD Abdomen: Soft, non-tender, no palpable masses, peristalsis present, no guarding or rebound. Extremities: Symmetrical, no significant deformities, no peripheral edema , non-tender, peripheral pulses presents. Skin: No rashes, no lesions, warm to touch. Right axillary area erythema with mild edema and nonfluctuating mass centrally,non-tender today, extended beyond borders. Neuro: No focal neurological deficits. Psych: Cooperative, appropriate mood and effect. Objective Labs 11/18/24 04:39 11/18/24 04:39 Labs: Laboratory Results - last 24 hr 11/16/24 11/16/24 11/16/24 05:26 07:15 16:22 WBC RBC Hgb 8.2 L D Hct 25.1 L MCV MCH MCHC RDW Std Deviation Plt Count Neut % (Auto) Lymph % (Auto) [place] % (Auto) Eos % (Auto) Baso % (Auto) Neut # (Auto) Lymph # (Auto) [place] # (Auto) Eos # (Auto) Baso # (Auto) Immature Gran # (Auto) Absolute Nucleated RBC Immature Gran % Nucleated RBC % Smear Path Review Sent to Pathologist Sodium Potassium Chloride Carbon Dioxide Anion Gap BUN Creatinine Estim Creat Clear Calc eGFR BUN/Creatinine Ratio Glucose Calculated Osmolality Calcium Corrected Calcium Magnesium Total Bilirubin AST ALT Alkaline Phosphatase Total Protein Albumin Globulin Albumin/Globulin Ratio Coccidioides IgM Ab Negative Misc Test Result Platelets confirmed Blood Type O Positive Antibody Screen NEGATIVE Crossmatch See Detail Blood Bank Wristband ID Yes 11/17/24 05:25 WBC 0.7 L* RBC 2.51 L Hgb 7.6 L Hct 23.0 L MCV 92 MCH 30.3 MCHC 33.0 RDW Std Deviation 57.2 H Plt Count 49 L Neut % (Auto) 22 L Lymph % (Auto) 69 H [place] % (Auto) 8 Eos % (Auto) 1 Baso % (Auto) 0 Neut # (Auto) 0.2 L Lymph # (Auto) 0.5 L [place] # (Auto) 0.1 Eos # (Auto) 0.0 Baso # (Auto) 0.0 Immature Gran # (Auto) 0.00 Absolute Nucleated RBC 0.00 Immature Gran % 0 Nucleated RBC % 0 Smear Path Review Sodium 140 Potassium 3.6 Chloride 108 H Carbon Dioxide 23.5 Anion Gap 9 BUN 19 Creatinine 1.0 Estim Creat Clear Calc 37.3 L eGFR 57 L BUN/Creatinine Ratio 19 Glucose 96 Calculated Osmolality 281 Calcium 8.4 Corrected Calcium 8.9 Magnesium 1.9 Total Bilirubin 1.0 D AST 55 H ALT 51 H Alkaline Phosphatase 128 H D Total Protein 5.8 Albumin 3.4 Globulin 2.4 Albumin/Globulin Ratio 1.4 Coccidioides IgM Ab Misc Test Result Platelets confirmed Blood Type Antibody Screen Crossmatch Blood Bank Wristband ID Quality Measures Quality Measures none Advance care planning discussed with:: patient Assessment & Plan Assessment Current Active Medications: Generic Name Dose Route Start Last Admin Trade Name Freq PRN Reason Stop Dose Admin Acetaminophen 650 mg 11/16/24 08:45 Acetaminophen 325 Mg Tablet PO 12/15/24 15:22 Q6H PRN pain and Fever >100.4 Hydrocodone Bitart/Acetaminophen 1 tab 11/15/24 15:23 11/16/24 22:23 Hydrocodone/Apap 5/325 Tablet PO 11/20/24 15:22 1 tab Q4HR PRN Administration PAIN SCALE 4-10(Mod-Sev Acyclovir 400 mg 11/15/24 21:00 11/17/24 09:26 Acyclovir 200 Mg Capsule PO 11/25/24 15:34 400 mg BID KAVON Administration Heparin Sodium (Porcine) 5,000 unit 11/15/24 21:00 11/17/24 09:26 Heparin Sod Inj 5000 Unit/Ml Vial SC 11/29/24 20:59 5,000 unit BID KAVON Administration Piperacillin/Tazobactam/Dextrose 3.375 gm in 50 mls @ 12.5 mls/hr 11/15/24 23:00 11/17/24 05:44 Zosyn IV 11/22/24 22:59 12.5 mls/hr Q8HR KAVON Administration Protocol Vancomycin HCl 750 mg/ Sodium 250 mls @ 200 mls/hr 11/16/24 10:00 11/17/24 09:44 Chloride IV 11/23/24 09:59 200 mls/hr Q24H KAVON Administration Levothyroxine Sodium 88 mcg 11/16/24 06:00 11/17/24 05:44 Levothyroxine Sodium 88 Mcg Tablet PO 12/16/24 05:59 88 mcg ACBR KAVON Administration Ondansetron HCl 4 mg 11/15/24 15:23 Ondansetron Inj 2 Mg/Ml Inj 2 Ml IV 12/15/24 15:22 Q6H PRN NAUSEA OR VOMITING Protocol Pantoprazole Sodium 40 mg 11/16/24 09:00 11/17/24 09:24 Pantoprazole 40 Mg Tablet PO 12/16/24 08:59 40 mg QDAY KAVON Administration Pharmacy Consult 1 each 11/15/24 15:30 Vancomycin Pharmacy To Dose 1 Each Each IV 12/15/24 15:29 QDAY PRN CONSULT Sennosides 1 tab 11/15/24 15:23 Senna Tablet PO 12/15/24 15:22 QDAY PRN constipation Protocol Voriconazole 200 mg 11/15/24 21:00 11/17/24 09:26 Voriconazole 200 Mg Tablet PO 11/22/24 20:59 200 mg BID KAVON Administration Plan 79-year-old female with past medical history of 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 Patient came in with complaints of bodyaches and cough as well as erythema and tenderness of right axillary area. ? Patient goes to [facility] when she follows up with oncologist, but she also followed up with oncologist at our cancer center. ? Patient met SIRS criteria 4 out of 4 she also had an LIZ indicating endorgan damage ? qSOFA of 2 points indicating high risk of in-hospital mortality ?Checks x-ray only show mild vascular congestion ? Patient's WBC was less than 0.4 and absolute neutrophil count was 0.1 on admission ?Ultrasound of right axillary area did not show any abscess, cystic or solid mass. ? COVID and influenza were both negative Plan: ? Continue patient on vancomycin, pharmacy dose, and Zosyn [11/15/2024?] ? Continue patient's acyclovir 400 mg twice daily and voriconazole 200 mg twice daily -Started filgrastim 300mcg daily (until ANC above 2000) ? Blood and urine cultures pending - repeat blood cx pending ? Neutropenic precautions -ID consulted, appreciate recommendations ? Will continue to monitor #Pancytopenia ? Patient came in with hemoglobin 7.9, platelets 67, and WBCs of less than 0.4 ?Patient has a history of pancytopenia per chart review - hemoglobin 7.6, platelets 49, and WBCs of 0.7 today -Ordered 2 units of irradiated PRBC - Patient asymptomatic ?got 1 PRBC 11/16/2024 Plan: -Started filgrastim 300mcg daily (until ANC above 2000) ?Heparin subcu held due to low platelets ?Bleeding precautions ? Will continue to monitor closely #LIZ, improving ? Patient came in with creatinine of 1.4 ? Base creatinine 0.7 -Cr 1 today Plan: ? Renally dose medication ? Avoid nephrotoxic agents ? Will continue monitor #Transaminitis ? Patient came in with AST 131, ALT 118, alkaline phosphatase 148 ? Patient does not have any right upper quadrant pain and is not jaundiced -AST 55, ALT 51, alkaline phosphatase 128 today -Hep panel negative Plan: ? Will continue to monitor #Hx of hypertension ? Holding BP medication given setting of sepsis and patient's blood pressure has been on the lower end. #Hx of aortic valve thrombosis ? Pending medication reconciliation #Hx of GERD ? Continue patient on pantoprazole #Hx of hypothyroidism ? Continue patient's levothyroxine 88 mcg daily Disposition: Patient admitted to med/tele for neutropenic fever in setting of Sepsis, continue Zosyn/Vanco,spiked fever, repeat blood cx, transfuse 1 PRBC irradiated. Diet: Regular GI prophylaxis: protonix DVT prophylaxis: Heparin Sc BID (held low platelets) Code: Full code Case disclosed with Attending Dr. Hughes and My senior Dr. Cohen PGY3. Reilly Aguilar PGY1 Attending Provider Attestation/Addendum I, Naomy Hughes, DO, attest that I was physically present for the stewart portions of the service and evaluated the patient with the resident and I reviewed and discussed the case with the resident and agree with the resident's findings and plans of care as documented above Patient seen and evaluated this AM. Will start neupogen. Patient appears to have abscess versus infected lymph node under right axilla that is erythematous and painful to palpation. If it does not improve with IV abx, will consult surgeon. Patient otherwise states shortness of breath and generalized weakness has slightly improved.
--- NOTE | 2024-11-17 12:42 | PD.IDPROG ---
Subjective Subjective Interval history: fever and neutropenia. improved. fever seems resolved. procal high but can be in CA too. (we have seen that before). gpc in bc 2, not yet identified. Exam Vital Signs Temp Pulse Resp BP Pulse Ox O2 Del Method 98.5 F 63 18 133/63 H 96 Room Air 11/17/24 12:00 11/17/24 12:00 11/17/24 12:00 11/17/24 12:00 11/17/24 12:00 11/17/24 12:00 Narrative Exam tender inflammed rt axilla suspect a small abscess there. with aml, she may not have the neutrophils to make a formal abscess, but drainage may still be in the cards. Objective - Internal Medicine Labs 11/17/24 05:25 11/17/24 05:25 Labs: Laboratory Results - last 24 hr 11/16/24 11/16/24 11/17/24 07:15 16:22 05:25 WBC 0.7 L* RBC 2.51 L Hgb 8.2 L D 7.6 L Hct 25.1 L 23.0 L MCV 92 MCH 30.3 MCHC 33.0 RDW Std Deviation 57.2 H Plt Count 49 L Neut % (Auto) 22 L Lymph % (Auto) 69 H [place] % (Auto) 8 Eos % (Auto) 1 Baso % (Auto) 0 Neut # (Auto) 0.2 L Lymph # (Auto) 0.5 L [place] # (Auto) 0.1 Eos # (Auto) 0.0 Baso # (Auto) 0.0 Immature Gran # (Auto) 0.00 Absolute Nucleated RBC 0.00 Immature Gran % 0 Nucleated RBC % 0 Sodium 140 Potassium 3.6 Chloride 108 H Carbon Dioxide 23.5 Anion Gap 9 BUN 19 Creatinine 1.0 Estim Creat Clear Calc 37.3 L eGFR 57 L BUN/Creatinine Ratio 19 Glucose 96 Calculated Osmolality 281 Calcium 8.4 Corrected Calcium 8.9 Magnesium 1.9 Total Bilirubin 1.0 D AST 55 H ALT 51 H Alkaline Phosphatase 128 H D Total Protein 5.8 Albumin 3.4 Globulin 2.4 Albumin/Globulin Ratio 1.4 Coccidioides IgM Ab Negative Misc Test Result Platelets confirmed Blood Type O Positive Antibody Screen NEGATIVE Crossmatch See Detail Blood Bank Wristband ID Yes Assessment & Plan A&P Narrative fever and neutropenia, fever resolved bc pos 2/3, gpc 1/2 bc rt axillary abscess. aml. oral chemo per others (she is 79 yoa). hep c and hep panel neg will get hiv test in am and stop the zosyn as pt no longer febrile. many are using the preventive rx as you are. so the oral acv and vori are ok will continue the vanco and likely have a formal plan by friday, no objection to surgical eval of rt axillary process Time Spent With Patient Time: Total time spent is greater than 50% in coordination of care (as documented) at patient's floor/unit and/or counseling patient:
--- NOTE | 2024-11-17 14:15 | PC.SS ---
Rounding note: patient receiving IV abx.
[2024-11-17] MEDS: FILGRASTIM INJ (ZARXIO) 300 MCG/0.5 ML SYRINGE SC (14:22)
--- NOTE | 2024-11-17 15:28 | ESCONSULT_ITS ---
RE: EDENILSON STANTON : 1945 DATE OF CONSULTATION: 11/17/2024 REFERRING PHYSICIAN: Dustin Santiago MD REASON FOR CONSULTATION: Right axillary abscess and bacteremia. HISTORY OF PRESENT ILLNESS: The patient is an unfortunate 79-year-old woman. She is a remarkably good historian, but speaks mostly Serbian. She does understand some Romansh, so I did use both in my discussion with her. Other than cancer, she denies other health problems. 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 She has hypertension and hyperlipidemia based on her medications and sees a specialist in [place] for her cancer. Surgeries include only bladder surgery in the past. ALLERGIES: NONE NOTED. IMMUNIZATIONS: Last tetanus is not known. She does not take flu shot every year. She has one every couple of years and had one about last about 5 years ago. She has had 3 COVID vaccines and has not had pneumococcal vaccines. FAMILY HISTORY: Unremarkable. SOCIAL HISTORY: She lives with at least one son. She is a lifelong nonsmoker. She reports no other health concerns. PHYSICAL EXAMINATION: The patient is pleasant, alert, and cooperative. The right axilla is quite tender and has limited range of motion, so that is probably the source of her trouble. RECOMMENDATIONS: I am going to narrow her down to vancomycin alone given the gram positive blood culture, awaiting identification and susceptibilities, and we may be able to narrow it further if it is oxacillin sensitive staph. If it is not, we may leave her on vancomycin, but please note that axillary abscess may be best imaged by other forms of imaging like ultrasound. She may not have a white count to create a big response, so drainage may still be prudent. I will leave that drainage decision to surgery. I will check on her again Friday. cc: MD Naomy Maloney DO DT: 13:12:24 TT: 14:42:00 Ref: [id number] - TID: [id number] MTDD
[2024-11-17 19:09] LABS: Hematocrit 24.5 % (36.0-46.0)
[2024-11-17 19:41] LABS: Hemoglobin 8.1 g/dL (12.0-16.0)
[2024-11-18] VITALS (8 sets, daily range): BP systolic 138–169; BP diastolic 65–107; PULSE 68–92; RESP 18–95; TEMP 36.1–37.1; O2SAT 94–97; BMI 29.8
[2024-11-18] MEDS: BENZONATATE 100 MG CAPSULE PO (00:20)
[2024-11-18] MEDS: LEVOTHYROXINE SODIUM 88 MCG TABLET PO (05:47)
[2024-11-18 06:03] LABS: Basophils % (Auto) 0 % (0-2.5); Eosinophils % (Auto) 0 % (0-10); Hematocrit 23.3 % (36.0-46.0); Immature Granulocytes % (Auto) 15 % (0-0); Immature Granulocytes Auto 0.16 Thou/mm3 (0.00-0.00); Lymphocytes # (Auto) 0.6 Thou/mm3 (1.0-4.8); Lymphocytes % (Auto) 57 % (10-50); Mean Corpuscular HGB Conc 32.2 g/dl (31.0-37.0); Mean Corpuscular Volume 93 fL (80-100); Monocytes # (Auto) 0.1 Thou/mm3 (0.0-0.8); Monocytes % (Auto) 10 % (0-12); Neutrophils # (Auto) 0.2 Thou/mm3 (1.8-7.7); Neutrophils % (Auto) 18 % (37-80); Nucleated Red Blood Cell % 0 /100 WBC (0); RDW Standard Deviation 58.2 fL (36.4-46.3)
[2024-11-18 06:15] LABS: Hemoglobin 7.5 g/dL (12.0-16.0); Platelet Count 48 Thou/mm3 (140-440)
[2024-11-18 06:31] LABS: Slide Review Platelets confirmed
[2024-11-18 06:45] LABS: Alanine Aminotransferase 41 U/L (10-49); Albumin, Serum 3.6 gm/dL (3.4-4.8); Albumin/Globulin Ratio 1.6 (1.2-2.2); Alkaline Phosphatase 150 U/L (46-116); Anion Gap 9 (7-16); Aspartate Amino Transferase 33 U/L (0-34); BUN/Creatinine Ratio 17 Ratio (12-20); Bilirubin,Total 0.8 mg/dL (0.3-1.2); Blood Urea Nitrogen 15 mg/dL (9-23); Calcium 8.7 mg/dL (8.3-10.6); Carbon Dioxide 24.3 mMol/L (20.0-31.0); Chloride 109 mMol/L (98-107); Creatinine (Component) 0.9 mg/dL (0.6-1.3); Estimated Creatinine Clearance 41.4 mL/min (>60); Globulin 2.3 gm/dL (2.3-3.5); Glucose 95 mg/dL (74-106); Magnesium 1.8 mg/dL (1.6-2.6); Osmolality,Calculated 283 (275-295); Potassium 3.4 mMol/L (3.4-5.1); Sodium 142 mMol/L (136-145); Total Protein 5.9 gm/dL (5.7-8.2); eGFR > 60 See Note
--- NOTE | 2024-11-18 10:06 | XR_ITS ---
Examination: Ultrasound soft tissue right axilla TECHNIQUE: Grayscale sonographic images soft tissue right axilla Exam date and time: November 18, 1999 2512 noon INDICATIONS: Increasing swelling and pain in the right axilla over the last 5 days FINDINGS: Edema in the axillary region No cystic or solid mass IMPRESSION: No cystic or solid mass
[2024-11-18 10:08] LABS: Vancomycin,Trough 6.8 mcg/mL (5.0-10.0)
[2024-11-18] MEDS: Magnesium Sulfate 2 GM Ivpb 2 GM/50 ML BAG IV (11:22)
[2024-11-18] MEDS: POTASSIUM CHLORIDE 20 mEq TABCR PO (11:22)
[2024-11-18] MEDS: ACYCLOVIR 200 MG CAPSULE 400 MG PO ×2 (11:22→21:11)
[2024-11-18] MEDS: PANTOPRAZOLE 40 MG TABLET PO (11:23)
[2024-11-18] MEDS: VORICONAZOLE 200 MG TABLET PO ×2 (11:23→21:11)
[2024-11-18] MEDS: Vancomycin Inj 750 MG in SODIUM CHLORIDE 0.9% 250 ML 250 ML 200 MG IV ×2 (11:24→21:14)
--- NOTE | 2024-11-18 11:59 | ESPR_ITS ---
<Statement entered by Tamy Cohen MD - 11/18/24 13:43> I discussed with and supervised my co-resident involved in the care of this patient. I agree with the assessment and plan as documented above. Area of right axilla cellulitis appears more erythematous, rubor, and tender than yesterday. ID recommended vanc monotherapy for now. Will get repeat imaging to assess for abscess and general surgery consult for evaluation. Tamy Cohen MD PGY-3 Documentation for date of: 11/18/24 Subjective Subjective Interval history: Patient seen at bedside this morning. No overnight events. Patient's repeat blood cultures have been negative in the first 24 hours. Her axillary area does seem to be worsening with the nonfluctuating mass increasing in size as well as the erythematous region has spread more today. There is also more tenderness on palpation. Patient did not spike any fevers overnight and infectious disease recommended stopping the Zosyn and continue the vancomycin for now. Will get a repeat ultrasound and will get general surgery consult. Exam Vital Signs Temp Pulse Resp BP Pulse Ox O2 Del Method 97.0 F 75 19 153/72 H 97 Room Air 11/18/24 08:00 11/18/24 08:00 11/18/24 08:00 11/18/24 08:00 11/18/24 08:00 11/18/24 08:00 Narrative Exam General: A/O x3, no acute distress, well-nourished, well-developed Eyes: PERRL, EOMI. Anicteric, vision grossly intact. Ears: No ear pain, no ear discharge, Hearing grossly intact. Nose: No nasal discharge. Mouth/Throat: Moist mucous membranes, no redness, no lesions. Neck: Neck supple, non-tender, no cervical lymphadenopathy. Lungs: Clear STACEY to auscultation and percussion, No accessory muscle use. Cardio: Normal S1/S2, regular rhythm, no murmurs, no JVD Abdomen: Soft, non-tender, no palpable masses, peristalsis present, no guarding or rebound. Extremities: Symmetrical, no significant deformities, no peripheral edema , non-tender, peripheral pulses presents. Skin: No rashes, no lesions, warm to touch. Right axillary area erythema with more pronounced edema/erythema and nonfluctuating mass centrally has increased in size, tender. Neuro: No focal neurological deficits. Psych: Cooperative, appropriate mood and effect. Objective Labs 11/19/24 05:22 11/19/24 05:22 Labs: Laboratory Results - last 24 hr 11/17/24 11/18/24 11/18/24 18:50 04:39 08:40 WBC 1.0 L D RBC 2.50 L Hgb 8.1 L 7.5 L Hct 24.5 L 23.3 L MCV 93 MCH 30.0 MCHC 32.2 RDW Std Deviation 58.2 H Plt Count 48 L Neut % (Auto) 18 L Lymph % (Auto) 57 H [place] % (Auto) 10 Eos % (Auto) 0 Baso % (Auto) 0 Neut # (Auto) 0.2 L Lymph # (Auto) 0.6 L [place] # (Auto) 0.1 Eos # (Auto) 0.0 Baso # (Auto) 0.0 Immature Gran # (Auto) 0.16 H Absolute Nucleated RBC 0.00 Immature Gran % 15 H Nucleated RBC % 0 Sodium 142 Potassium 3.4 Chloride 109 H Carbon Dioxide 24.3 Anion Gap 9 BUN 15 Creatinine 0.9 Estim Creat Clear Calc 41.4 L eGFR > 60 BUN/Creatinine Ratio 17 Glucose 95 Calculated Osmolality 283 Calcium 8.7 Corrected Calcium 9.0 Magnesium 1.8 Total Bilirubin 0.8 AST 33 ALT 41 Alkaline Phosphatase 150 H D Total Protein 5.9 Albumin 3.6 Globulin 2.3 Albumin/Globulin Ratio 1.6 Vancomycin Trough 6.8 Misc Test Result Platelets confirmed Quality Measures Quality Measures none Advance care planning discussed with:: patient Assessment & Plan Assessment Current Active Medications: Generic Name Dose Route Start Last Admin Trade Name Jian PRN Reason Stop Dose Admin Acetaminophen 650 mg 11/16/24 08:45 Acetaminophen 325 Mg Tablet PO 12/15/24 15:22 Q6H PRN pain and Fever >100.4 Hydrocodone Bitart/Acetaminophen 1 tab 11/15/24 15:23 11/16/24 22:23 Hydrocodone/Apap 5/325 Tablet PO 11/20/24 15:22 1 tab Q4HR PRN Administration PAIN SCALE 4-10(Mod-Sev Acyclovir 400 mg 11/15/24 21:00 11/18/24 11:22 Acyclovir 200 Mg Capsule PO 11/25/24 15:34 400 mg BID KAVON Administration Benzonatate 100 mg 11/17/24 23:53 11/18/24 00:20 Benzonatate 100 Mg Capsule PO 12/17/24 23:52 100 mg Q8HR PRN Administration COUGH Protocol Filgrastim 300 mcg 11/17/24 13:30 11/17/24 14:22 Filgrastim Inj (Zarxio) 300 Mcg/0.5 Ml Syringe SC 11/19/24 09:01 300 mcg QDAY KAVON Administration Heparin Sodium (Porcine) 5,000 unit 11/15/24 21:00 11/18/24 11:36 Heparin Sod Inj 5000 Unit/Ml Vial SC 11/29/24 20:59 Not Given BID KAVON Vancomycin HCl 750 mg/ Sodium 250 mls @ 200 mls/hr 11/18/24 11:00 11/18/24 11:24 Chloride IV 11/25/24 10:59 200 mls/hr BID@1000,2200 KAVON Administration Protocol Levothyroxine Sodium 88 mcg 11/16/24 06:00 11/18/24 05:47 Levothyroxine Sodium 88 Mcg Tablet PO 12/16/24 05:59 88 mcg ACBR KAVON Administration Ondansetron HCl 4 mg 11/15/24 15:23 Ondansetron Inj 2 Mg/Ml Inj 2 Ml IV 12/15/24 15:22 Q6H PRN NAUSEA OR VOMITING Protocol Pantoprazole Sodium 40 mg 11/16/24 09:00 11/18/24 11:23 Pantoprazole 40 Mg Tablet PO 12/16/24 08:59 40 mg QDAY KAVON Administration Pharmacy Consult 1 each 11/15/24 15:30 Vancomycin Pharmacy To Dose 1 Each Each IV 12/15/24 15:29 QDAY PRN CONSULT Sennosides 1 tab 11/15/24 15:23 Senna Tablet PO 12/15/24 15:22 QDAY PRN constipation Protocol Voriconazole 200 mg 11/15/24 21:00 11/18/24 11:23 Voriconazole 200 Mg Tablet PO 11/22/24 20:59 200 mg BID KAVON Administration Plan 79-year-old female with past medical history of 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 Patient came in with complaints of bodyaches and cough as well as erythema and tenderness of right axillary area. ? Patient goes to [facility] when she follows up with oncologist, but she also followed up with oncologist at our cancer center. ? Patient met SIRS criteria 4 out of 4 she also had an LIZ indicating endorgan damage ? qSOFA of 2 points indicating high risk of in-hospital mortality ?Checks x-ray only show mild vascular congestion ? Patient's WBC was less than 0.4 and absolute neutrophil count was 0.1 on admission ?Ultrasound of right axillary area did not show any abscess, cystic or solid mass. ? COVID and influenza were both negative -Zosyn [11/15/2024?11/16/2024] Plan: ? Continue patient on vancomycin, pharmacy dose [11/15/2024?] ? Continue patient's acyclovir 400 mg twice daily and voriconazole 200 mg twice daily -Continue filgrastim 300mcg daily (until ANC above 2000) ? Blood and urine cultures pending - repeat blood cx pending -repeat US ? Neutropenic precautions -ID consulted, appreciate recommendations -General surgery consulted, appreciate recommendations ? Will continue to monitor #Pancytopenia ? Patient came in with hemoglobin 7.9, platelets 67, and WBCs of less than 0.4 ?Patient has a history of pancytopenia per chart review - hemoglobin 7.5, platelets 48, and WBCs of 1 today -Ordered 2 units of irradiated PRBC - Patient asymptomatic ?got 1 PRBC 11/16/2024 Plan: -Continue filgrastim 300mcg daily (until ANC above 2000) ?Heparin subcu held due to low platelets ?Bleeding precautions ? Will continue to monitor closely #LIZ, improving ? Patient came in with creatinine of 1.4 ? Base creatinine 0.7 -Cr 0.9 today Plan: ? Renally dose medication ? Avoid nephrotoxic agents ? Will continue monitor #Transaminitis ? Patient came in with AST 131, ALT 118, alkaline phosphatase 148 ? Patient does not have any right upper quadrant pain and is not jaundiced -AST 33, ALT 41, alkaline phosphatase 150 today -Hep panel negative Plan: ? Will continue to monitor #Hx of hypertension ? Holding BP medication given setting of sepsis and patient's blood pressure has been on the lower end. #Hx of aortic valve thrombosis ? Pending medication reconciliation #Hx of GERD ? Continue patient on pantoprazole #Hx of hypothyroidism ? Continue patient's levothyroxine 88 mcg daily Disposition: Patient admitted to med/tele for neutropenic fever in setting of Sepsis, continue Vanco,no fever, pending US and General surgery consult. Diet: Regular GI prophylaxis: protonix DVT prophylaxis: Heparin Sc BID (held low platelets) Code: Full code Case disclosed with Attending Dr. Hughes and My senior Dr. Cohen PGY3. Reilly Aguilar PGY1 Attending Provider Attestation/Addendum INaomy, DO, attest that I was physically present for the stewart portions of the service and evaluated the patient with the resident and I reviewed and discussed the case with the resident and agree with the resident's findings and plans of care as documented above Pt seen and evaluated this AM. Patient continues to complain of pain on palpation and worsening erythema of her right axilla. Will consult gen/surg for possible I&D and repeat US to evaluate for possible Abscess. Continue with IV abx at this time.
[2024-11-18 12:27] LABS: Cocci Serology, IgG Negative (Negative)
--- NOTE | 2024-11-18 13:38 | PC.NURSE ---
assumed care of patient. pt alert and oriented gcs 15. no signs of distress noted.
[2024-11-18] MEDS: FILGRASTIM INJ (ZARXIO) 300 MCG/0.5 ML SYRINGE SC (13:42)
[2024-11-18 14:25] LABS: HIV (1&2) Antibody Rapid Non-Reactive
--- NOTE | 2024-11-18 21:35 | PC.NURSE ---
patient's platelets are 48, patient has heparin SC 5000 units for DVT prophylaxis, Called Dr. Ramesh regarding this, per MD will hold heparin for now and use SCDs instead for DVT prophylaxis.
[2024-11-19] VITALS (8 sets, daily range): BP systolic 155–175; BP diastolic 71–89; PULSE 72–93; RESP 16–19; TEMP 36.2–36.8; O2SAT 95–97; BMI 29.8
[2024-11-19 05:50] LABS: Basophils % (Auto) 1 % (0-2.5); Eosinophils % (Auto) 1 % (0-10); Hematocrit 23.2 % (36.0-46.0); Immature Granulocytes % (Auto) 12 % (0-0); Immature Granulocytes Auto 0.17 Thou/mm3 (0.00-0.00); Lymphocytes # (Auto) 0.5 Thou/mm3 (1.0-4.8); Lymphocytes % (Auto) 33 % (10-50); Mean Corpuscular HGB Conc 31.9 g/dl (31.0-37.0); Mean Corpuscular Hemoglobin 30.1 pg (25.0-35.0); Mean Corpuscular Volume 94 fL (80-100); Monocytes # (Auto) 0.2 Thou/mm3 (0.0-0.8); Monocytes % (Auto) 10 % (0-12); Neutrophils # (Auto) 0.7 Thou/mm3 (1.8-7.7); Neutrophils % (Auto) 44 % (37-80); Nucleated Red Blood Cell # 0.02 Thou/mm3 (0.00-0.00); Nucleated Red Blood Cell % 1 /100 WBC (0); RDW Standard Deviation 58.9 fL (36.4-46.3); Red Blood Count 2.46 Miln/mm3 (4.00-5.20)
[2024-11-19 05:51] LABS: Hemoglobin 7.4 g/dL (12.0-16.0); Platelet Count 43 Thou/mm3 (140-440); White Blood Count 1.5 Thou/mm3 (3.6-11.0)
[2024-11-19 05:52] LABS: Slide Review Platelets confirmed
[2024-11-19] MEDS: LEVOTHYROXINE SODIUM 88 MCG TABLET PO (06:25)
[2024-11-19 06:34] LABS: Alanine Aminotransferase 26 U/L (10-49); Albumin, Serum 3.5 gm/dL (3.4-4.8); Albumin/Globulin Ratio 1.6 (1.2-2.2); Alkaline Phosphatase 159 U/L (46-116); Anion Gap 9 (7-16); Aspartate Amino Transferase 19 U/L (0-34); BUN/Creatinine Ratio 17 Ratio (12-20); Bilirubin,Total 0.6 mg/dL (0.3-1.2); Blood Urea Nitrogen 15 mg/dL (9-23); Calcium 8.8 mg/dL (8.3-10.6); Calcium (Corrected) 9.2 mg/dL (8.5-10.1); Chloride 110 mMol/L (98-107); Creatinine (Component) 0.9 mg/dL (0.6-1.3); Estimated Creatinine Clearance 41.4 mL/min (>60); Globulin 2.2 gm/dL (2.3-3.5); Glucose 92 mg/dL (74-106); Osmolality,Calculated 285 (275-295); Potassium 3.5 mMol/L (3.4-5.1); Sodium 143 mMol/L (136-145); Total Protein 5.7 gm/dL (5.7-8.2); eGFR > 60 See Note
--- NOTE | 2024-11-19 07:46 | PC.NURSE ---
Spot check blood sugar 104
[2024-11-19] MEDS: PANTOPRAZOLE 40 MG TABLET PO (09:01)
[2024-11-19] MEDS: ACYCLOVIR 200 MG CAPSULE 400 MG PO ×2 (09:01→20:30)
[2024-11-19] MEDS: VORICONAZOLE 200 MG TABLET PO ×2 (09:01→20:30)
[2024-11-19] MEDS: Vancomycin Inj 750 MG in SODIUM CHLORIDE 0.9% 250 ML 250 ML 200 MG IV (09:02)
--- NOTE | 2024-11-19 09:10 | PD.IDPROG ---
Subjective Subjective Interval history: improved. afebrile. no surgical eval yet. Exam Vital Signs Temp Pulse Resp BP Pulse Ox O2 Del Method 97.1 F 84 16 165/75 H 97 Room Air 11/19/24 08:00 11/19/24 08:00 11/19/24 08:00 11/19/24 08:00 11/19/24 08:00 11/19/24 08:00 Narrative Exam rt axillary process seems improved. cx with coag neg staph only Objective - Internal Medicine Labs 11/19/24 05:22 11/19/24 05:22 Labs: Laboratory Results - last 24 hr 11/16/24 11/18/24 11/18/24 07:15 04:39 08:40 WBC RBC Hgb Hct MCV MCH MCHC RDW Std Deviation Plt Count Neut % (Auto) Lymph % (Auto) [place] % (Auto) Eos % (Auto) Baso % (Auto) Neut # (Auto) Lymph # (Auto) [place] # (Auto) Eos # (Auto) Baso # (Auto) Immature Gran # (Auto) Absolute Nucleated RBC Immature Gran % Nucleated RBC % Sodium Potassium Chloride Carbon Dioxide Anion Gap BUN Creatinine Estim Creat Clear Calc eGFR BUN/Creatinine Ratio Glucose Calculated Osmolality Calcium Corrected Calcium Total Bilirubin AST ALT Alkaline Phosphatase Total Protein Albumin Globulin Albumin/Globulin Ratio Vancomycin Trough 6.8 Coccidioides IgG Ab Negative HIV 1&2 Antibody Rapid Non-Reactive Misc Test Result Crossmatch See Detail 11/19/24 05:22 WBC 1.5 L D RBC 2.46 L Hgb 7.4 L Hct 23.2 L MCV 94 MCH 30.1 MCHC 31.9 RDW Std Deviation 58.9 H Plt Count 43 L Neut % (Auto) 44 Lymph % (Auto) 33 [place] % (Auto) 10 Eos % (Auto) 1 Baso % (Auto) 1 Neut # (Auto) 0.7 L Lymph # (Auto) 0.5 L [place] # (Auto) 0.2 Eos # (Auto) 0.0 Baso # (Auto) 0.0 Immature Gran # (Auto) 0.17 H Absolute Nucleated RBC 0.02 H Immature Gran % 12 H Nucleated RBC % 1 H Sodium 143 Potassium 3.5 Chloride 110 H Carbon Dioxide 24.0 Anion Gap 9 BUN 15 Creatinine 0.9 Estim Creat Clear Calc 41.4 L eGFR > 60 BUN/Creatinine Ratio 17 Glucose 92 Calculated Osmolality 285 Calcium 8.8 Corrected Calcium 9.2 Total Bilirubin 0.6 AST 19 ALT 26 Alkaline Phosphatase 159 H Total Protein 5.7 Albumin 3.5 Globulin 2.2 L Albumin/Globulin Ratio 1.6 Vancomycin Trough Coccidioides IgG Ab HIV 1&2 Antibody Rapid Misc Test Result Platelets confirmed Crossmatch Assessment & Plan A&P Narrative fever and neutropenia, fever resolved bc pos 2/3, gpc 1/2 bc rt axillary abscess. possibly more of a cellulitis aml. oral chemo per others (she is 79 yoa). hep c and hep panel neg many are using the preventive rx as you are. so the oral acv and vori are ok ok for home if no surgery after planned surgical eval of rt axillary process will see friday if she remains in house at that time she is 79 yoa, so may be timely to have a goals of care discussion with her before release from hospital. Time Spent With Patient Time: Total time spent is greater than 50% in coordination of care (as documented) at patient's floor/unit and/or counseling patient:
[2024-11-19] MEDS: FILGRASTIM INJ (ZARXIO) 300 MCG/0.5 ML SYRINGE SC (09:21)
[2024-11-19] MEDS: cephALEXin 250 MG CAPSULE 500 MG PO ×3 (11:44→20:29)
--- NOTE | 2024-11-19 12:17 | PD.EVENT ---
Documentation for date of: 11/19/24 Event Note Event Note: I was asked to evaluate and rule out abscess or soft tissue mass. This is a 79-year-old female with history of AML on chemotherapy was admitted with significant neutropenia. She had an ultrasound on November 15 that did not show any evidence of solid or cystic mass, repeat ultrasound yesterday had similar findings. Patient has cellulitis and skin induration without fluctuance, evidence of abscess or soft tissue infection. No indication for surgical intervention. Patient can be treated with antibiotic and discharge when medically appropriate.
[2024-11-19] MEDS: LOSARTAN POTASSIUM 25 MG TABLET 100 MG PO (12:57)
--- NOTE | 2024-11-19 13:30 | PC.SS ---
Addendum entered by Alison Diehl 11/19/24 13:41: SS follow up note; SS contacted patient's daughter, Florinda in regards to Discharge plan. Marissa reports patient will discharge home and informed SS that prior to admission she was being followed by [facility] Florinda rquested for SS to submit [facility] referral SS submitted and faxed [facility]. Original Note: SS follow up note; Patient is pending PT evaluation to determine Discharge plan.
--- NOTE | 2024-11-19 16:08 | ESPR_ITS ---
<Statement entered by Tamy Cohen MD - 11/19/24 18:42> I discussed with and supervised my co-resident involved in the care of this patient. I agree with the assessment and plan as documented above. Patient seen at bedside. Axilla cellulitis dark, erythematous but less painful per patient. General surgery evaluated, recommend no surgical intervention at this time and to continue IV antibiotics. Antibiotics changed to cefazolin and doxycyline for the R axilla cellulitis. Patient recieved neuprogen today. Will continue IV antibiotics, anticipate discharge within 24-48 hours pending blood cultures. Tamy Cohen MD PGY-3 Documentation for date of: 11/19/24 Subjective Subjective Interval history: Patient notes improvement of cellulitis from yesterday. Has not been having fevers or chills. Ultrasound yesterday negative for abscess. Surgery consulted and noted that no need for intervention at this time. Will continue with antibiotics. Exam Vital Signs Temp Pulse Resp BP Pulse Ox O2 Del Method 97.5 F 78 16 173/77 H 97 Room Air 11/19/24 11:50 11/19/24 12:57 11/19/24 11:50 11/19/24 12:57 11/19/24 11:50 11/19/24 08:00 Narrative Exam Constitutional:No acute distress Head: Normocephalic/Atraumatic Eyes: no conjunctival injection , symmetrical lids. ENMT: Moist Mucous Membranes CVS: Regular with rate rhythm RESP: no increased work of breathing, on room air Skin: Warm to touch, Dry. 2 x 3 cm indurated lesion in the right axilla, surrounding area is erythematous Neuro: Alert and oriented Psych:Appropriate mood and affect. Objective Labs 11/20/24 05:06 11/20/24 05:06 Labs: Laboratory Results - last 24 hr 11/16/24 11/19/24 07:15 05:22 WBC 1.5 L D RBC 2.46 L Hgb 7.4 L Hct 23.2 L MCV 94 MCH 30.1 MCHC 31.9 RDW Std Deviation 58.9 H Plt Count 43 L Neut % (Auto) 44 Lymph % (Auto) 33 [place] % (Auto) 10 Eos % (Auto) 1 Baso % (Auto) 1 Neut # (Auto) 0.7 L Lymph # (Auto) 0.5 L [place] # (Auto) 0.2 Eos # (Auto) 0.0 Baso # (Auto) 0.0 Immature Gran # (Auto) 0.17 H Absolute Nucleated RBC 0.02 H Immature Gran % 12 H Nucleated RBC % 1 H Sodium 143 Potassium 3.5 Chloride 110 H Carbon Dioxide 24.0 Anion Gap 9 BUN 15 Creatinine 0.9 Estim Creat Clear Calc 41.4 L eGFR > 60 BUN/Creatinine Ratio 17 Glucose 92 Calculated Osmolality 285 Calcium 8.8 Corrected Calcium 9.2 Total Bilirubin 0.6 AST 19 ALT 26 Alkaline Phosphatase 159 H Total Protein 5.7 Albumin 3.5 Globulin 2.2 L Albumin/Globulin Ratio 1.6 Misc Test Result Platelets confirmed Crossmatch See Detail Quality Measures Quality Measures none Advance care planning discussed with:: patient Assessment & Plan Assessment Current Active Medications: Generic Name Dose Route Start Last Admin Trade Name Freq PRN Reason Stop Dose Admin Acetaminophen 650 mg 11/16/24 08:45 Acetaminophen 325 Mg Tablet PO 12/15/24 15:22 Q6H PRN pain and Fever >100.4 Hydrocodone Bitart/Acetaminophen 1 tab 11/15/24 15:23 11/16/24 22:23 Hydrocodone/Apap 5/325 Tablet PO 11/20/24 15:22 1 tab Q4HR PRN Administration PAIN SCALE 4-10(Mod-Sev Acyclovir 400 mg 11/15/24 21:00 11/19/24 09:01 Acyclovir 200 Mg Capsule PO 11/25/24 15:34 400 mg BID KAVON Administration Benzonatate 100 mg 11/17/24 23:53 11/18/24 00:20 Benzonatate 100 Mg Capsule PO 12/17/24 23:52 100 mg Q8HR PRN Administration COUGH Protocol Cephalexin HCl 500 mg 11/19/24 12:00 11/19/24 11:44 Cephalexin 250 Mg Capsule PO 11/26/24 11:59 500 mg QID KAVON Administration Doxycycline Hyclate 100 mg 11/19/24 21:00 Doxycycline 100 Mg Tablet PO 11/26/24 20:59 BID KAVON Heparin Sodium (Porcine) 5,000 unit 11/15/24 21:00 11/18/24 22:13 Heparin Sod Inj 5000 Unit/Ml Vial SC 11/29/24 20:59 Not Given BID [facility] Levothyroxine Sodium 88 mcg 11/16/24 06:00 11/19/24 06:25 Levothyroxine Sodium 88 Mcg Tablet PO 12/16/24 05:59 88 mcg ACBR KAVON Administration Losartan Potassium 100 mg 11/19/24 12:00 11/19/24 12:57 Losartan Potassium 25 Mg Tablet PO 12/19/24 11:59 100 mg QDAY KAVON Administration Ondansetron HCl 4 mg 11/15/24 15:23 Ondansetron Inj 2 Mg/Ml Inj 2 Ml IV 12/15/24 15:22 Q6H PRN NAUSEA OR VOMITING Protocol Sennosides 1 tab 11/15/24 15:23 Senna Tablet PO 12/15/24 15:22 QDAY PRN constipation Protocol Voriconazole 200 mg 11/15/24 21:00 11/19/24 09:01 Voriconazole 200 Mg Tablet PO 11/22/24 20:59 200 mg BID KAVON Administration Plan 79-year-old female with past medical history of 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 Patient came in with complaints of bodyaches and cough as well as erythema and tenderness of right axillary area. ? Patient goes to [facility] when she follows up with oncologist, but she also followed up with oncologist at our cancer center. ? Patient met SIRS criteria 4 out of 4 she also had an LIZ indicating endorgan damage ? qSOFA of 2 points indicating high risk of in-hospital mortality ?Checks x-ray only show mild vascular congestion ? Patient's WBC was less than 0.4 and absolute neutrophil count was 0.1 on admission ?Ultrasound on 11/15 of right axillary area did not show any abscess, cystic or solid mass. ? COVID and influenza were both negative -Zosyn [11/15/2024?11/16/2024] ?Repeat ultrasound from 11/18 without cystic lesion or solid mass ?Surgery consulted today, recommending medical management Plan: -ID consulted: ?Continue patient on vancomycin, pharmacy dose [11/15/2024?] ?Continue patient's acyclovir 400 mg twice daily and voriconazole 200 mg twice daily -Filgrastim 300mcg daily discontinued today, will f/u with labs tomorrow. Per guidelines medication can be continued until her ANC reaches 5000- 10,000/microliters or continuation until clinically adequate neutrophil recovery is achieved ?Repeat urine and blood culture negative #Pancytopenia ? Patient came in with hemoglobin 7.9, platelets 67, and WBCs of less than 0.4 ?Patient has a history of pancytopenia per chart review - hemoglobin 7.5, platelets 48, and WBCs of 1 today -Ordered 2 units of irradiated PRBC - Patient asymptomatic ?got 1 PRBC 11/16/2024 Plan: -Continue filgrastim 300mcg daily (until ANC above 2000) ?Heparin subcu held due to low platelets ?Will continue to monitor closely #LIZ-resolved #Transaminitis ? Patient came in with AST 131, ALT 118, alkaline phosphatase 148 ? Patient does not have any right upper quadrant pain and is not jaundiced -Hep panel negative ?LFTs no longer elevated only alk phos at 159. Plan: ? Will continue to monitor #Hx of hypertension Resume home losartan 100 mg daily #Hx of aortic valve thrombosis Pending medication reconciliation #Hx of GERD Resume pantoprazole #Hx of hypothyroidism Resume levothyroxine 88 mcg daily Disposition: Patient admitted to med/tele for neutropenic fever in setting of Sepsis Diet: Regular GI prophylaxis: protonix DVT prophylaxis: Heparin Sc BID (held low platelets) Code: Full code Case discussed with Attending Dr. Hughes, Julio Cesar Kebede DO, PGY1 Attending Provider Attestation/Addendum Naomy Kelley DO, attest that I was physically present for the stewart portions of the service and evaluated the patient with the resident and I reviewed and discussed the case with the resident and agree with the resident's findings and plans of care as documented above Patient seeen and evaluated this AM. She states she is feeling well and reports improvement of her axillary region. Erythema and firmness of indurated region is improved and less tender. ANC at 660 with goal of 2000. Will continue with neupogen and abx
[2024-11-19] MEDS: DOXYCYCLINE 100 MG TABLET PO (20:30)
[2024-11-20] VITALS (8 sets, daily range): BP systolic 147–172; BP diastolic 56–75; PULSE 72–93; RESP 16–20; TEMP 36.4–36.8; O2SAT 95–98; BMI 32.3
[2024-11-20] MEDS: cephALEXin 250 MG CAPSULE 500 MG PO ×4 (05:05→20:37)
[2024-11-20] MEDS: LEVOTHYROXINE SODIUM 88 MCG TABLET PO (05:06)
[2024-11-20 06:06] LABS: Basophils % (Auto) 0 % (0-2.5); Eosinophils % (Auto) 0 % (0-10); Hematocrit 23.5 % (36.0-46.0); Immature Granulocytes % (Auto) 15 % (0-0); Immature Granulocytes Auto 0.36 Thou/mm3 (0.00-0.00); Lymphocytes # (Auto) 0.6 Thou/mm3 (1.0-4.8); Lymphocytes % (Auto) 24 % (10-50); Mean Corpuscular HGB Conc 32.3 g/dl (31.0-37.0); Mean Corpuscular Hemoglobin 30.2 pg (25.0-35.0); Mean Corpuscular Volume 93 fL (80-100); Monocytes # (Auto) 0.3 Thou/mm3 (0.0-0.8); Monocytes % (Auto) 12 % (0-12); Neutrophils # (Auto) 1.2 Thou/mm3 (1.8-7.7); Neutrophils % (Auto) 49 % (37-80); Nucleated Red Blood Cell % 0 /100 WBC (0); RDW Standard Deviation 57.6 fL (36.4-46.3); Red Blood Count 2.52 Miln/mm3 (4.00-5.20)
[2024-11-20 06:09] LABS: Hemoglobin 7.6 g/dL (12.0-16.0); White Blood Count 2.5 Thou/mm3 (3.6-11.0)
[2024-11-20 06:16] LABS: Platelet Count 48 Thou/mm3 (140-440); Slide Review Platelets confirmed
[2024-11-20 06:42] LABS: Alanine Aminotransferase 19 U/L (10-49); Albumin, Serum 3.5 gm/dL (3.4-4.8); Albumin/Globulin Ratio 1.6 (1.2-2.2); Alkaline Phosphatase 158 U/L (46-116); Anion Gap 8 (7-16); Aspartate Amino Transferase 14 U/L (0-34); BUN/Creatinine Ratio 16 Ratio (12-20); Bilirubin,Total 0.6 mg/dL (0.3-1.2); Blood Urea Nitrogen 13 mg/dL (9-23); Calcium 8.6 mg/dL (8.3-10.6); Chloride 107 mMol/L (98-107); Creatinine (Component) 0.8 mg/dL (0.6-1.3); Estimated Creatinine Clearance 48.6 mL/min (>60); Globulin 2.2 gm/dL (2.3-3.5); Glucose 88 mg/dL (74-106); Osmolality,Calculated 282 (275-295); Potassium 3.2 mMol/L (3.4-5.1); Sodium 142 mMol/L (136-145); Total Protein 5.7 gm/dL (5.7-8.2); eGFR > 60 See Note
[2024-11-20] MEDS: LOSARTAN POTASSIUM 25 MG TABLET 100 MG PO (08:38)
[2024-11-20] MEDS: ACYCLOVIR 200 MG CAPSULE 400 MG PO ×2 (08:38→20:37)
[2024-11-20] MEDS: VORICONAZOLE 200 MG TABLET PO ×2 (08:38→20:38)
[2024-11-20] MEDS: DOXYCYCLINE 100 MG TABLET PO ×2 (08:38→20:37)
--- NOTE | 2024-11-20 09:49 | PD.RESPRO ---
Documentation for date of: 11/20/24 Subjective Subjective Interval history: Patient was seen at bedside this morning. No overnight events. Patient stated that overnight she had difficulty sleeping because of her cough, but otherwise feels much better. Her cellulitis on the right axillary area has significantly improved with decrease in the spread of the erythema, but there is still some skin induration without fluctuation. ANC 1200. No other complaints at this time. Exam Vital Signs Temp Pulse Resp BP Pulse Ox O2 Del Method 98.0 F 75 18 172/70 H 95 Room Air 11/20/24 08:00 11/20/24 08:38 11/20/24 08:00 11/20/24 08:38 11/20/24 08:00 11/20/24 08:00 Narrative Exam General: A/O x3, no acute distress, well-nourished, well-developed Eyes: PERRL, EOMI. Anicteric, vision grossly intact. Ears: No ear pain, no ear discharge, Hearing grossly intact. Nose: No nasal discharge. Mouth/Throat: Moist mucous membranes, no redness, no lesions. Neck: Neck supple, non-tender, no cervical lymphadenopathy. Lungs: Clear STACEY to auscultation and percussion, No accessory muscle use. Cardio: Normal S1/S2, regular rhythm, no murmurs, no JVD Abdomen: Soft, non-tender, no palpable masses, peristalsis present, no guarding or rebound. Extremities: Symmetrical, no significant deformities, no peripheral edema , non-tender, peripheral pulses presents. Skin: No rashes, no lesions, warm to touch. Right axillary area erythema with more pronounced edema/erythema and nonfluctuating mass centrally has increased in size, tender. Neuro: No focal neurological deficits. Psych: Cooperative, appropriate mood and effect. Objective Labs 11/21/24 04:52 11/21/24 04:52 Labs: Laboratory Results - last 24 hr 11/20/24 05:06 WBC 2.5 L D RBC 2.52 L Hgb 7.6 L Hct 23.5 L MCV 93 MCH 30.2 MCHC 32.3 RDW Std Deviation 57.6 H Plt Count 48 L Neut % (Auto) 49 Lymph % (Auto) 24 Edgar % (Auto) 12 Eos % (Auto) 0 Baso % (Auto) 0 Neut # (Auto) 1.2 L Lymph # (Auto) 0.6 L Edgar # (Auto) 0.3 Eos # (Auto) 0.0 Baso # (Auto) 0.0 Immature Gran # (Auto) 0.36 H Absolute Nucleated RBC 0.00 Immature Gran % 15 H Nucleated RBC % 0 Sodium 142 Potassium 3.2 L Chloride 107 Carbon Dioxide 27.0 Anion Gap 8 BUN 13 Creatinine 0.8 Estim Creat Clear Calc 48.6 L eGFR > 60 BUN/Creatinine Ratio 16 Glucose 88 Calculated Osmolality 282 Calcium 8.6 Corrected Calcium 9.0 Total Bilirubin 0.6 AST 14 ALT 19 Alkaline Phosphatase 158 H Total Protein 5.7 Albumin 3.5 Globulin 2.2 L Albumin/Globulin Ratio 1.6 Misc Test Result Platelets confirmed Quality Measures Quality Measures none Advance care planning discussed with:: patient Assessment & Plan Assessment Current Active Medications: Generic Name Dose Route Start Last Admin Trade Name Freq PRN Reason Stop Dose Admin Acetaminophen 650 mg 11/16/24 08:45 Acetaminophen 325 Mg Tablet PO 12/15/24 15:22 Q6H PRN pain and Fever >100.4 Hydrocodone Bitart/Acetaminophen 1 tab 11/15/24 15:23 11/16/24 22:23 Hydrocodone/Apap 5/325 Tablet PO 11/20/24 15:22 1 tab Q4HR PRN Administration PAIN SCALE 4-10(Mod-Sev Acyclovir 400 mg 11/15/24 21:00 11/20/24 08:38 Acyclovir 200 Mg Capsule PO 11/25/24 15:34 400 mg BID KAVON Administration Albuterol/Ipratropium 3 ml 11/20/24 08:47 Albuterol/Ipratropium (Duoneb) Rt Marly 3 Ml Nebu INH 12/20/24 08:46 Q2HR PRN SHORTNESS OF BREATH OR WHEEZE Benzonatate 100 mg 11/20/24 09:15 Benzonatate 100 Mg Capsule PO 12/20/24 09:14 Q8HR KAVON Protocol Cephalexin HCl 500 mg 11/19/24 12:00 11/20/24 05:05 Cephalexin 250 Mg Capsule PO 11/26/24 11:59 500 mg QID KAVON Administration Doxycycline Hyclate 100 mg 11/19/24 21:00 11/20/24 08:38 Doxycycline 100 Mg Tablet PO 11/26/24 20:59 100 mg BID KAVON Administration Heparin Sodium (Porcine) 5,000 unit 11/15/24 21:00 11/18/24 22:13 Heparin Sod Inj 5000 Unit/Ml Vial SC 11/29/24 20:59 Not Given BID KAVON Levothyroxine Sodium 88 mcg 11/16/24 06:00 11/20/24 05:06 Levothyroxine Sodium 88 Mcg Tablet PO 12/16/24 05:59 88 mcg ACBR KAVON Administration Losartan Potassium 100 mg 11/19/24 12:00 11/20/24 08:38 Losartan Potassium 25 Mg Tablet PO 12/19/24 11:59 100 mg QDAY KAVON Administration Ondansetron HCl 4 mg 11/15/24 15:23 Ondansetron Inj 2 Mg/Ml Inj 2 Ml IV 12/15/24 15:22 Q6H PRN NAUSEA OR VOMITING Protocol Sennosides 1 tab 11/15/24 15:23 Senna Tablet PO 12/15/24 15:22 QDAY PRN constipation Protocol Voriconazole 200 mg 11/15/24 21:00 11/20/24 08:38 Voriconazole 200 Mg Tablet PO 11/22/24 20:59 200 mg BID KAVON Administration Plan 79-year-old female with past medical history of 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 Patient came in with complaints of bodyaches and cough as well as erythema and tenderness of right axillary area. ? Patient goes to [facility] when she follows up with oncologist, but she also followed up with oncologist at our cancer center. ? Patient met SIRS criteria 4 out of 4 she also had an LIZ indicating endorgan damage ? qSOFA of 2 points indicating high risk of in-hospital mortality ?Checks x-ray only show mild vascular congestion ? Patient's WBC was less than 0.4 and absolute neutrophil count was 0.1 on admission ?Ultrasound of right axillary area did not show any abscess, cystic or solid mass. ? COVID and influenza were both negative -Zosyn [11/15/2024?11/16/2024], vancomycin, pharmacy dose [11/15/2024?11/19/2024] -Urine and Blood cx negative Plan: ? Continue patient on Keflex and Doxy [11/19/2024-] ? Continue patient's acyclovir 400 mg twice daily and voriconazole 200 mg twice daily -Continue filgrastim 300mcg daily (until ANC above 2000) ? Neutropenic precautions -ID consulted, appreciate recommendations -General surgery consulted, appreciate recommendations ? Will continue to monitor #Pancytopenia ? Patient came in with hemoglobin 7.9, platelets 67, and WBCs of less than 0.4 ?Patient has a history of pancytopenia per chart review - hemoglobin 7.6, platelets 48, and WBCs of 2.5, ANC 1200 today -Ordered 2 units of irradiated PRBC - Patient asymptomatic ?got 1 PRBC 11/16/2024 Plan: -Continue filgrastim 300mcg daily (until ANC above 2000) ?Heparin subcu held due to low platelets ?Bleeding precautions ? Will continue to monitor closely #LIZ, resolved ? Patient came in with creatinine of 1.4 ? Base creatinine 0.7 -Cr 0.8 today Plan: ? Renally dose medication ? Avoid nephrotoxic agents ? Will continue monitor #Transaminitis, resolved ? Patient came in with AST 131, ALT 118, alkaline phosphatase 148 ? Patient does not have any right upper quadrant pain and is not jaundiced -Hep panel negative Plan: ? Will continue to monitor #Hx of hypertension ? Continue losartan 100mg qday #Hx of aortic valve thrombosis ? Pending medication reconciliation #Hx of GERD ? Continue patient on pantoprazole #Hx of hypothyroidism ? Continue patient's levothyroxine 88 mcg daily Disposition: Patient admitted to med/tele for neutropenic fever in setting of Sepsis, continue keflex/doxy, pending ANC above 2k Diet: Regular GI prophylaxis: protonix DVT prophylaxis: Heparin Sc BID (held low platelets), SCDs Code: Full code Case disclosed with Attending Dr. Saul Aguilar PGY1 Attending Provider Attestation/Addendum I, Naomy Hughes DO, attest that I was physically present for the stewart portions of the service and evaluated the patient with the resident and I reviewed and discussed the case with the resident and agree with the resident's findings and plans of care as documented above Patient seen and evaluated this AM. Axillary cellulitis appears improved, mild tenderness to palpation, less erythema. Daugther in law at bedside as well. Patient reports some cough, will give cough syrup and tessalon perles. Patient states she is overall feeling well. Will continue with filgrastim. Anticipate DC tomorrow after filgrastim and patient can continue with injections and labs at [facility] on Friday. ANC of 1200 today, uptrending appropriately.
[2024-11-20] MEDS: POTASSIUM CHLORIDE 20 mEq TABCR 40 MEQ PO (10:53)
[2024-11-20] MEDS: BENZONATATE 100 MG CAPSULE PO ×3 (10:54→21:11)
[2024-11-20] MEDS: ALBUTEROL/IPRATROPIUM (Duoneb) RT SOL 3 ML NEBU INH (10:54)
[2024-11-20] MEDS: FILGRASTIM INJ (ZARXIO) 300 MCG/0.5 ML SYRINGE SC (10:57)
--- NOTE | 2024-11-20 13:55 | PC.PT ---
11/20/2024 PT eval performed with no additional PT recommended while in hospital d/t neutropenic precautions keeping patient in her room limiting distance patient is able to ambulate and patient showing no concerns with transfers in room.
[2024-11-20] MEDS: guaiFENesin SYRUP 200 MG/10 ML UDC 100 MG PO (15:58)
[2024-11-21] VITALS: BP 154/68; PULSE 76; PULSE 78; RESP 18; TEMP 36.6; O2SAT 95
[2024-11-21 04:00] VITALS: BP 153/71; PULSE 72; PULSE 79; RESP 18; TEMP 36.6; O2SAT 96
[2024-11-21] MEDS: cephALEXin 250 MG CAPSULE 500 MG PO ×2 (05:07→12:46)
[2024-11-21] MEDS: BENZONATATE 100 MG CAPSULE PO (05:07)
[2024-11-21] MEDS: LEVOTHYROXINE SODIUM 88 MCG TABLET PO (05:07)
[2024-11-21 06:06] LABS: Basophils % (Auto) 1 % (0-2.5); Eosinophils % (Auto) 0 % (0-10); Hematocrit 22.6 % (36.0-46.0); Immature Granulocytes % (Auto) 11 % (0-0); Immature Granulocytes Auto 0.34 Thou/mm3 (0.00-0.00); Lymphocytes % (Auto) 31 % (10-50); Mean Corpuscular HGB Conc 33.2 g/dl (31.0-37.0); Mean Corpuscular Hemoglobin 30.9 pg (25.0-35.0); Mean Corpuscular Volume 93 fL (80-100); Monocytes # (Auto) 0.2 Thou/mm3 (0.0-0.8); Monocytes % (Auto) 6 % (0-12); Neutrophils # (Auto) 1.6 Thou/mm3 (1.8-7.7); Neutrophils % (Auto) 51 % (37-80); Nucleated Red Blood Cell % 0 /100 WBC (0); RDW Standard Deviation 58.8 fL (36.4-46.3); Red Blood Count 2.43 Miln/mm3 (4.00-5.20); White Blood Count 3.2 Thou/mm3 (3.6-11.0)
[2024-11-21 06:08] LABS: Hemoglobin 7.5 g/dL (12.0-16.0); Platelet Count 38 Thou/mm3 (140-440)
[2024-11-21 06:09] LABS: Slide Review Platelets confirmed
[2024-11-21 06:29] LABS: Alanine Aminotransferase 12 U/L (10-49); Albumin, Serum 3.5 gm/dL (3.4-4.8); Albumin/Globulin Ratio 1.7 (1.2-2.2); Alkaline Phosphatase 149 U/L (46-116); Anion Gap 6 (7-16); Aspartate Amino Transferase < 10 U/L (0-34); BUN/Creatinine Ratio 14 Ratio (12-20); Bilirubin,Total 0.5 mg/dL (0.3-1.2); Blood Urea Nitrogen 10 mg/dL (9-23); Calcium 8.6 mg/dL (8.3-10.6); Carbon Dioxide 27.4 mMol/L (20.0-31.0); Chloride 109 mMol/L (98-107); Creatinine (Component) 0.7 mg/dL (0.6-1.3); Estimated Creatinine Clearance 55.4 mL/min (>60); Globulin 2.1 gm/dL (2.3-3.5); Glucose 91 mg/dL (74-106); Osmolality,Calculated 282 (275-295); Potassium 3.3 mMol/L (3.4-5.1); Sodium 142 mMol/L (136-145); Total Protein 5.6 gm/dL (5.7-8.2); eGFR > 60 See Note
[2024-11-21 08:00] VITALS: BP 148/63; PULSE 64; RESP 16; TEMP 36.3; O2SAT 96
[2024-11-21] MEDS: ACYCLOVIR 200 MG CAPSULE 400 MG PO (08:54)
[2024-11-21] MEDS: FILGRASTIM INJ (ZARXIO) 300 MCG/0.5 ML SYRINGE SC (08:54)
[2024-11-21] MEDS: POTASSIUM CHLORIDE 20 mEq TABCR 40 MEQ PO (08:54)
[2024-11-21 08:55] VITALS: BP 148/63; PULSE 85
[2024-11-21] MEDS: VORICONAZOLE 200 MG TABLET PO (08:55)
[2024-11-21] MEDS: LOSARTAN POTASSIUM 25 MG TABLET 100 MG PO (08:55)
[2024-11-21] MEDS: DOXYCYCLINE 100 MG TABLET PO (08:56)
--- NOTE | 2024-11-21 10:34 | ESDS_ITS ---
<Statement entered by Naomy Hughes DO - 11/21/24 13:31> I, Naomy Hughes DO, attest that I was physically present for the stewart portions of the service and evaluated the patient with the resident and I reviewed and discussed the case with the resident and agree with the resident's findings and plans of care as documented above Planned Discharge Date 11/21/24 DS: Providers Provider Date of admission: 11/15/24 15:23 Primary care physician: SIMON Delgado Admitting Provider: Dustin Santiago MD Attending Provider on Admission: Naomy Hughes DO Consults: 11/15/24 14:33 Consult to Oncology Stat Comment: Consulting Provider: Erick Bolton 11/17/24 10:25 Consult to Infectious Diseases Routine Comment: Consulting Provider: Dav Odell 11/18/24 10:16 Consult to General Surgery Routine Comment: Consulting Provider: Yamila Arellano 11/19/24 10:34 PT [Referral Physical Therapy] Routine Comment: Physician Instructions: Attending Provider on DC: Naomy Hughes DO Discharging Provider: Naomy Hughes DO DS: Diagnosis Problem List Completed Was Problem List Reviewed/Reconciled?: Yes Hospital Course Hospital Course Hospital course: 79-year-old female with past medical history of 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 Patient came in to the ED with complaints of flulike symptoms. Initially in tachycardic tachypneic and febrile. Initial labs were relevant for neutropenia (less than 0.4), low hemoglobin (10.9), thrombocytopenia (67), absolute neutrophil count of 0.1, LIZ (creatinine 1.4), transaminitis (AST 131, ALT 118, alkaline phosphatase 148), and elevated procalcitonin at 7.77. Initial imaging included chest x-ray which showed moderate vascular congestion and right upper extremity ultrasound which showed no cystic or solid mass nor abscess. Throughout the hospital stay patient remained stable, but she did spike a fever today after she was admitted and since then she did not spike any further fevers. Infectious disease was consulted and recommended to keep patient on vancomycin as well as acyclovir and voriconazole. Patient's blood cultures initially did grow Staph hominis, but repeat blood cultures were negative after 48 hours and urine culture was negative. We had spoken with patient's oncologist stated to start patient on filgrastim. Given the patient had cellulitis of the right axillary area which did become more swollen and erythematous General Surgery was consulted and stated that the patient did not need any surgical intervention at this time and that IV antibiotics would be sufficient for now. Afterwards patient remained stable throughout her hospital stay and her absolute neutrophil count up trended to 1600. At the time of discharge patient was stable enough to be discharged home with home health with close follow-up with her oncologist. Discharge plan: Please follow-up with primary care physician in 1 week after discharge Please follow-up with your oncologist within 1 to 2 days after discharge to follow-up on the need to continue filgrastim. You have been started on doxycycline twice a day, please take 1 tablet this evening and then the rest of the medication as prescribed until 11/26/2023. You have been started on cephalexin 500 mg 4 times daily, please take 1 tablet every 6 hours starting today and then until 11/26/2023. Please continue taking all other home medications as prescribed. Please come back to the ER if symptoms persist or worsen. 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 Saul Aguilar PGY1 Status at Discharge Overall status at discharge: patient is progressing back to baseline Time Spent with Patient Time attestation: Total time spent providing and/or coordinating discharge services:>35 min Home Health Home Health Referral Orders: 11/19/24 18:43 Home Health Referral Routine Reason For Exam: neutropenia Home-Bound The patient must either because of illness or injury, need the aid of supportive devices such as crutches, canes, wheelchairs, and walkers; the use of special transportation; or the assistance of another person in order to leave their place of residence; OR have a condition such that leaving his or her home is medically contraindicated. In addition, the patient also meets the following criteria: patient is normally unable to leave the home and leaving home requires considerable taxing effort. Addendum to Home Health Certification Practitioner's Certification: I certify that the patient has been under my care in the hospital and the care of attending physician (see below). We had a [id number] encounter on (see date below). My clinical findings indicate that the patient is home bound per the above criteria and the Home Health Services noted in these orders are medically necessary. The primary reason for the [id number] encounter is related to the fact that the patient requires home health services. Date Certifying [id number] Physician Encounter: 11/15/24 Physician's Name who will Assume Oversight for Services: Shama Liao Physician's Phone No.who will Assume Oversight for Service: COMMERCIAL ANALYST - Community Resources: No PT to Evaluate: Yes PT to evaluate and provide a treatmnet plan to increase patient's mobility and strength. Wound Care: No IV Therapy: No RN Safety Evaluation: Yes RN to evaluate and create a plan of care that will produce positive outcomes. Palliative Treatment: No Palliative treatment and evaluate the need for hospice. Home Health Aide - Personal Care: Yes Home Health Aide to assist with any ADL's. Exam Vital Signs Temp Pulse Resp BP Pulse Ox O2 Del Method 97.3 F 85 16 148/63 H 96 Room Air 11/21/24 08:00 11/21/24 08:55 11/21/24 08:00 11/21/24 08:55 11/21/24 08:00 11/21/24 08:00 Narrative Exam General: A/O x3, no acute distress, well-nourished, well-developed Eyes: PERRL, EOMI. Anicteric, vision grossly intact. Ears: No ear pain, no ear discharge, Hearing grossly intact. Nose: No nasal discharge. Mouth/Throat: Moist mucous membranes, no redness, no lesions. Neck: Neck supple, non-tender, no cervical lymphadenopathy. Lungs: Clear STACEY to auscultation and percussion, No accessory muscle use. Cardio: Normal S1/S2, regular rhythm, no murmurs, no JVD Abdomen: Soft, non-tender, no palpable masses, peristalsis present, no guarding or rebound. Extremities: Symmetrical, no significant deformities, no peripheral edema , non-tender, peripheral pulses presents. Skin: No rashes, no lesions, warm to touch. Right axillary area erythema has improved as well as nonfluctuating mass. Neuro: No focal neurological deficits. Psych: Cooperative, appropriate mood and effect. Discharge Plan Plan Patient Disposition: Home w/HOME HEALTH Patient condition on transfer: Stable Care Plan Goals: Please follow-up with primary care physician in 1 week after discharge Please follow-up with your oncologist within 1 to 2 days after discharge to follow-up on the need to continue filgrastim. You have been started on doxycycline twice a day, please take 1 tablet this evening and then the rest of the medication as prescribed until 11/26/2023. You have been started on cephalexin 500 mg 4 times daily, please take 1 tablet every 6 hours starting today and then until 11/26/2023. Please continue taking all other home medications as prescribed. Please come back to the ER if symptoms persist or worsen. Prescriptions/Referrals Prescriptions/Med Rec: New benzonatate 100 mg capsule 100 mg PO TID PRN (Reason: cough) 7 Days Qty: 21 0RF doxycycline hyclate 100 mg capsule 100 mg PO BID 5 Days Qty: 11 0RF cephalexin 500 mg capsule 500 mg PO QID 5 Days Qty: 23 0RF Continued acyclovir 200 mg Capsule 400 mg PO BID voriconazole [Vfend] 200 mg Tablet 200 mg PO Q12H albuterol sulfate [ProAir HFA] 90 mcg/actuation HFA aerosol inhaler 2 puff inhalation Q6H PRN (Reason: shortness of breath or wheezing) Qty: 6.7 0RF lidocaine 5 % adhesive patch,medicated 1 patch TOPICAL Q12H Patient Comments: APPLY TO AFFECTED AREA ON R HIP FOR 12 HOURS AND REMOVE FOR 12 HOURS Rx Instructions: APPLY TO RIGHT HIP AND LEAVE ON FOR 12 HOURS AND OFF FOR 12 HOURS losartan 100 mg tablet 1 tab PO QDAY PRN (Reason: SBP 160) Patient Comments: TAKE 1 TABLET BY MOUTH EVERY DAY carisoprodol 250 mg tablet 1 tab PO BID PRN (Reason: Pain) Patient Comments: TAKE 1 TABLET BY MOUTH 2 TIMES DAILY NEEDED FOR MUSCLE SPASMS. MAX DAILY AMOUNT: 2 TABLETS diclofenac sodium 1 % gel 1 ea TOPICAL QID Patient Comments: APPLY 3 GRAMS EXTERNALLY ON LEG FOUR TIMES DAILY Rx Instructions: APPLY 3 GRAMS TO THE LEG 4 TIMES A DAY hydrocodone-acetaminophen 5-325 mg tablet 1 tab PO Q6H MDD 3 PRN (Reason: pain) Qty: 10 0RF levothyroxine 88 mcg tablet 88 mcg PO QDAY Discontinued levothyroxine [Synthroid] 88 mcg tablet 88 mcg PO QDAY No Action levofloxacin 250 mg Tablet 500 mg PO QDAY PRN (Reason: ANC IS BLOW 500) Referrals: Shama Liao FNP [Primary Care Provider] - Patient/Caregiver Discharge Instructions Education Materials: Neutropenia Print Language: Beninese Activity Restrictions/Additional Instructions: Please follow-up with primary care physician in 1 week after discharge Please follow-up with your oncologist within 1 to 2 days after discharge to follow-up on the need to continue filgrastim. You have been started on doxycycline twice a day, please take 1 tablet this evening and then the rest of the medication as prescribed tomorrow. You have been started on cephalexin 500 mg 4 times daily, please take 1 tablet every 6 hours starting today. Please continue taking all other home medications as prescribed. Please come back to the ER if symptoms persist or worsen. Stand Alone Forms: Sandi Award Info., Patient Portal Info Letter Discharge Order Discharge Orders: Discharge (Routine); Ordered 11/21/24 Ordered By: Reilly Aguilar Quality Discharge Quality Measures VTE prophylaxis
[2024-11-21 12:00] VITALS: BP 150/68; PULSE 77; RESP 17; TEMP 36.5; O2SAT 97
--- NOTE | 2024-11-21 15:53 | PC.CC ---
Addendum entered by Omid Armstrong RN 11/21/24 17:50: [facility] accepted the pt. Booked them. Resume of care date is 11/23/24. Original Note: per SS notes pt is followed by [facility]. HH referral sent on [facility]. Awaiting responses. Pending start of care date.
== END 2024-11-21 13:06 | disposition home health service (06) | DRG 720 ==
LOC: SERX 12:57 → SERHOLD 16:22 → S3NX 18:33
PROVIDERS: Internal Medicine Infectious Disease; Nurse Practitioner Primary Care; Student in an Organized Health Care Education/Training Program; Admitting Provider Internal Medicine; Emergency Provider Emergency Medicine; PCP Registered Nurse Community Health; Visit Provider Internal Medicine
DX: A41.1 Sepsis due to other specified staphylococcus (principal); D70.9 Neutropenia, unspecified; R50.81 Fever presenting with conditions classified elsewhere; N17.9 Acute kidney failure, unspecified; L03.111 Cellulitis of right axilla; C92.00 Acute myeloblastic leukemia, not having achieved remission; L02.411 Cutaneous abscess of right axilla; R74.01 Elevation of levels of liver transaminase levels; B02.9 Zoster without complications; K21.9 Gastro-esophageal reflux disease without esophagitis; E03.9 Hypothyroidism, unspecified; I10 Essential (primary) hypertension; M81.0 Age-related osteoporosis without current pathological fracture; E78.5 Hyperlipidemia, unspecified; D61.810 Antineoplastic chemotherapy induced pancytopenia; T45.1X5A Adverse effect of antineoplastic and immunosuppressive drugs, initial encounter; Z79.899 Other long term (current) drug therapy
CPT/HCPCS: 36415; 71046; 76882; 80053; 80061; 80074; 80202; 81001; 83605; 83735; 84145; 84439; 84443; 85014; 85018; 85025; 86331; 86635; 86703; 86850; 86900; 86901; 86923; 87040; 87077; 87081; 87086; 87186; 87205; 87400; 87634; 87811; 89220; 93225; 94640; 96365; 97161; 99291; A9270; J1643; J2543; J3370; J3371; J3475; J7030; J7050; P9040; Q5101

== ENCOUNTER 2024-11-23 09:36 | Outpatient (RCR) | payer MEDICAID, SELFPAY ==
--- NOTE | 2024-11-23 12:55 | CTCFLWUP_ITS ---
Patient: EDENILSON US : 1945 Page 2 of 2 FOLLOW UP NOTE DATE OF SERVICE: 11/23/2024 NAME: EDENILSON US ACCOUNT: [id number] : 1945 AGE: 79 INTERVAL HISTORY: Patient is doing well. She recently had a bone marrow biopsy. Patient is Mongolian-speaking and all conversation was done with the help of reprographics technician Ms. Lomax. ONCOLOGY HISTORY: DIAGNOSIS: Acute myelomonocytic leukemia, not having achieved remission [ICD10] C92.50 DATE OF DIAGNOSIS: 12/01/2019 STAGE/TNM: Acute myeloid leukemia with NPM mutation TREATMENT HISTORY: Care?Plan Start?Date Cycle Day Intent Azacitadine 05/15/2020 1 28 Curative?(primary) KCL?20 06/15/2020 1 1 Palliative HISTORY OF PRESENT ILLNESS: Edenilson Elizabeth is a 79-year-old SPA speaking female with history of hypertension, hypercholesterolemia and osteoporosis had a CBC drawn on 07/23/2019. WBC was 2.0, absolute neutrophil count was 0.9. Hemoglobin 11.2, MCV 87, platelet count is 208,000. A hematology consultation is requested for neutropenia and leukopenia. 12/01/2019: WBC 1.7, ANC 0.7, hemoglobin 11.3, platelets 217,000. B12 467, folate more than 20.0. Hepatitis panel negative. ESR 19. LDH 180 12/28/2019: WBC 1.4, absolute neutrophil count 0.5, hemoglobin 11.1, platelets 207,000. 01/31/2020: WBC 1.2, absolute neutrophil count 0.3, immature cells 2%, hemoglobin 10.9, platelets 187,000. Hepatitis panel negative. Iron saturation 27%. B12 361, folate more than 20.0. LDH 202, ESR 37. 01/31/2020: Ultrasound of the liver and spleen?liver measures 15.4 cm. The hepatic contour is smooth. No hepatosplenomegaly noted 02/29/2020: Bone marrow biopsy and aspiration- 03/05/2020: Patient received first cycle of azacitidine and venetoclax. 05/15/2020: Patient received second cycle of azacitidine and venetoclax. 05/31/2020: Bone marrow biopsy and aspiration? 06/20/2020: Patient received third cycle of venetoclax and azacitidine. 07/24/2020?08/06/2020: Patient was admitted to [facility] for sepsis. 09/29/2020: Patient completed fourth cycle of Vidaza in [place]. 08/27/2022: Bone marrow biopsy and aspiration? 11/02/2024 EKG shows sinus bradycardia [place] present. 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 acyclovir - 400 mg 1 tab Twice a Day 2. decitabine-cedazuridine - 35-100 mg 1 tab As directed 3. doxycycline hyclate - 100 mg 1 tab twice Daily 4. esomeprazole magnesium - 40 mg Capsule 5. levothyroxine - 88 mcg 1 Capsule Daily 6. losartan - 100 mg 1 tab Daily 7. Tibsovo - 250 mg 1 tab Daily 8. voriconazole - 200 mg Twice a Day Medications Last Reconciled by Barbra Liao MA on 11/23/2024 ALLERGIES: No Known Drug Allergies REVIEW OF SYSTEMS: A complete 14-point review of systems was performed and is negative except as noted in interval history. PHYSICAL EXAMINATION: VITAL SIGNS: Temperature?99.3, B/P?140/80, Oxygen?Saturation?96% Weight?151?lbs PAIN: 2 - Mild pain ECOG Performance Status: 1 - Symptomatic; ambulatory; restricted in strenuous activity GENERAL APPEARANCE: Appears well, in no apparent distress, appropriately interactive. HEENT: Normocephalic, no temporal wasting, normal conjunctiva, no scleral icterus, normal hearing, lips without lesions, neck normal range of motion. CARDIOVASCULAR: Not assessed. PULMONARY: Normal respiratory effort, abscess with drainage EXTREMITIES: No pedal edema or cyanosis. SKIN: Normal skin appearance. NEUROLOGIC: Alert and oriented x4. PSHYCHIATRIC: Appropriate affect, mood normal, behavior normal, intact thought and speech. 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 Roberto Ms. Us had bone marrow biopsy and aspiration done September 2024. She is in complete remission. Patient was started on ivosidenib 250 daily and bone marrow biopsy on 08/27/2022 was negative for residual AML Oral decitabine was switched to Inqovi for 3 days every 4 weeks Continue acyclovir and voriconazole prophylaxis and start doxycycline Transfusion should be done with irradiated products only CBC/EKG monthly to monitor?ekg from 11/06 is concerning. 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 Hypertension follow with the PCP Hypercholesterolemia follow with the PCP History of osteoporosis. Follow with the PCP Abscess drainage referrel placed to general surgeon Antibiotics for abscess for doxycycline .. ORDERS: Cbc,cmp RETURN TO CLINIC: 1 week BILLING AND COMPLIANCE: I reviewed external records from providers outside my specialty as summarized above. I spent a total of 50 minutes on this patient?s care on the day of their visit excluding time spent related to any billed procedures. This time includes time spent with the patient as well as time spent documenting in the medical record, reviewing patients records and tests, obtaining history, placing orders, communicating with other healthcare professionals, counseling the patient, family or caregiver, and/or care coordination for the diagnoses above. Electronically Signed by: Erick Bolton MD T: 12:52 PM CC: PCP: Shama Liao Referring: Shama Liao This document was completed utilizing speech recognition software. Grammatical errors, random word insertions, pronoun errors, and incomplete sentences are an occasional consequence of this system due to software limitations, ambient noise, and hardware issues. Any formal questions or concerns about the content, text or information contained within the body of this dictation should be directly addressed to the provider for clarification.
== END 2024-12-10 23:59 | disposition home or self-care (01) ==
LOC: SCTC 09:36
PROVIDERS: PCP Registered Nurse Community Health; Referring Provider Registered Nurse Community Health; Visit Provider Internal Medicine Hematology & Oncology
DX: C92.00 Acute myeloblastic leukemia, not having achieved remission (principal)
CPT/HCPCS: 87070; 87205; 99213; G0463

== ENCOUNTER → 2025-01-07 | Outpatient (CLI) | payer MEDICAID, SELFPAY ==
--- NOTE | 2025-01-07 09:40 | EKG_ITS ---
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 : 1945 Requested By: Erick Bolton Order Number: [id number] Reading MD: Erick Bolton Measurements Intervals Shock Rate: 53 P: 22 TN: 163 QRS: -28 QRSD: 114 T: 49 QT: 436 QTc: 412 Interpretive Statements SINUS BRADYCARDIA LEFT VENTRICULAR HYPERTROPHY AND ST-T CHANGE [VOLTAGE CRITERIA PLUS ST/T ABNORMALITY] INFERIOR MYOCARDIAL INFARCTION , OF INDETERMINATE AGE [40+ ms Q WAVE AND/OR ST/T ABNORMALITY IN II/aVF] POSSIBLE ANTEROSEPTAL MYOCARDIAL INFARCTION , OF INDETERMINATE AGE [30 ms Q WAVE IN V1-V4] WARNING: DATA QUALITY MAY AFFECT INTERPRETATION Compared to ECG 11/02/2024 09:47:39 No significant changes /store/S0/[id number]/[id number].pdf
== END | disposition home or self-care (01) ==
LOC: SEKG 09:18
PROVIDERS: PCP Registered Nurse Community Health; Referring Provider Internal Medicine Hematology & Oncology; Visit Provider Internal Medicine Hematology & Oncology
DX: C92.50 Acute myelomonocytic leukemia, not having achieved remission (principal)
CPT/HCPCS: 93005

== ENCOUNTER 2025-01-18 11:52 | Outpatient (RCR) | payer MEDICAID, SELFPAY ==
--- NOTE | 2025-01-18 22:39 | CTCFLWUP_ITS ---
Patient: EDENILSON US : 1945 Page 3 of 5 FOLLOW UP NOTE DATE OF SERVICE: 01/18/2025 NAME: EDENILSON US ACCOUNT: [id number] : 1945 AGE: 79 INTERVAL HISTORY: Patient is doing well. She recently had a bone marrow biopsy. Patient is Polish-speaking and all conversation was done with the help of software engineer advisor by her daughter. Patient did not want to use professional software engineer advisor preferred family. Patient is doing well. She had more energy levels since stopping chemotherapy. Has not required any transfusion since discharge from the hospital No symptoms concerning infection. No bleeding or bruising ONCOLOGY HISTORY:?[facility] Oncology Hx? DIAGNOSIS: Acute myelomonocytic leukemia, not having achieved remission [ICD10] C92.50 DATE OF DIAGNOSIS: 12/01/2019 STAGE/TNM: Acute myeloid leukemia with NPM mutation TREATMENT HISTORY: Care?Plan Start?Date Cycle Day Intent Azacitadine 05/15/2020 1 28 Curative?(primary) KCL?20 06/15/2020 1 1 Palliative HISTORY OF PRESENT ILLNESS: Edenilson Elizabeth is a 79-year-old SPA speaking female with history of hypertension, hypercholesterolemia and osteoporosis had a CBC drawn on 07/23/2019. WBC was 2.0, absolute neutrophil count was 0.9. Hemoglobin 11.2, MCV 87, platelet count is 208,000. A hematology consultation is requested for neutropenia and leukopenia. 12/01/2019: WBC 1.7, ANC 0.7, hemoglobin 11.3, platelets 217,000. B12 467, folate more than 20.0. Hepatitis panel negative. ESR 19. LDH 180 12/28/2019: WBC 1.4, absolute neutrophil count 0.5, hemoglobin 11.1, platelets 207,000. 01/31/2020: WBC 1.2, absolute neutrophil count 0.3, immature cells 2%, hemoglobin 10.9, platelets 187,000. Hepatitis panel negative. Iron saturation 27%. B12 361, folate more than 20.0. LDH 202, ESR 37. 01/31/2020: Ultrasound of the liver and spleen?liver measures 15.4 cm. The hepatic contour is smooth. No hepatosplenomegaly noted 02/29/2020: Bone marrow biopsy and aspiration- 03/05/2020: Patient received first cycle of azacitidine and venetoclax. 05/15/2020: Patient received second cycle of azacitidine and venetoclax. 05/31/2020: Bone marrow biopsy and aspiration? 06/20/2020: Patient received third cycle of venetoclax and azacitidine. 07/24/2020?08/06/2020: Patient was admitted to [facility] for sepsis. 09/29/2020: Patient completed fourth cycle of Vidaza in [place]. 08/27/2022: Bone marrow biopsy and aspiration? 11/02/2024 EKG shows sinus bradycardia [place] present. OTHER MEDICAL HISTORY/CONDITIONS: FAMILY HISTORY: ?Clone Family Hx? 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 acyclovir - 400 mg 1 tab Twice a Day 2. decitabine-cedazuridine - 35-100 mg 1 tab As directed 3. doxycycline hyclate - 100 mg 1 tab twice Daily 4. esomeprazole magnesium - 40 mg Capsule 5. levothyroxine - 88 mcg 1 Capsule Daily 6. losartan - 100 mg 1 tab Daily 7. Tibsovo - 250 mg 1 tab Daily 8. voriconazole - 200 mg Twice a Day?Palabra Meds? Medications Last Reconciled by Edenilson Pagan MA on 01/18/2025 ALLERGIES: No Known Drug Allergies REVIEW OF SYSTEMS: A complete 14-point review of systems was performed and is negative except as noted in interval history. PHYSICAL EXAMINATION:?CloneBlock PE? VITAL SIGNS: PAIN: 0 - No pain ECOG Performance Status: 0 - Asymptomatic and fully active GENERAL APPEARANCE: Appears well, in no apparent distress, appropriately interactive. HEENT: Normocephalic, no temporal wasting, normal conjunctiva, no scleral icterus, normal hearing, lips without lesions, neck normal range of motion. CARDIOVASCULAR: Not assessed. PULMONARY: Normal respiratory effort, abscess with drainage EXTREMITIES: No pedal edema or cyanosis. SKIN: Normal skin appearance. NEUROLOGIC: Alert and oriented x4. PSHYCHIATRIC: Appropriate affect, mood normal, behavior normal, intact thought and speech. LABORATORY DATA: I have personally reviewed and interpreted each of the patient?s relevant lab tests, abnormal findings are below: Date 11/20/24 11/21/24 ??WHITE?BLOOD?COUNT?(Thou/mm3) 2.5?L 3.2?L ??RED?BLOOD?COUNT?(Miln/mm3) 2.52?L 2.43?L ??HEMOGLOBIN?(gm/dl) 7.6?L 7.5?L ??HEMATOCRIT?(%) 23.5?L 22.6?L ??PLATELET?COUNT?(Thou/mm3) 48?L 38?L ??NEUTROPHILS?%,?AUTO?(%) 49 51 ??LYMPH?%,?AUTO?(%) 24 31 ??NEUTROPHILS,?AUTO?(Thou/mm3) 1.2?L 1.6?L ??GLUCOSE,RANDOM?(mg/dL) 88 91 ??BLOOD?UREA?NITROGEN?(mg/dL) 13 10 ??CREATININE?(mg/dL) 0.80 0.70 ??SODIUM?(mmol/L) 142 142 ??POTASSIUM?(mmol/L) 3.2?L 3.3?L ??CHLORIDE?(mmol/L) 107 109?H ??CrCl?(CandG)?(ml/min) 49.96 57.09 ??AST/SGOT?(Unit/L) 14 <?10 ??ALT/SGPT?(Unit/L) 19 12 ??ALKALINE?PHOSPHATASE?(Unit/L) 158?H 149?H ??BILIRUBIN,?TOTAL?(mg/dL) 0.6 0.5 ??PROTEIN?TOTAL?(gm/dl) 5.7 5.6?L ??ALBUMIN,?SERUM?(gm/dl) 3.5 3.5 ??GLOBULIN?(gm/dl) 2.2?L 2.1?L ??ALBUMIN/GLOBULIN?RATIO 1.6 1.7 ??CALCIUM,?SERUM?(mg/dL) 8.6 8.6 ??CALCIUM?SERUM?(CORRECTED)?(mg/dL) 9.0 9.0 ASSESSMENT/PLAN:?Nhi Bolton Assessment/Plan? 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 Roberto Ms. Us had bone marrow biopsy and aspiration done September 2024. She is in complete remission. Patient was started on ivosidenib 250 daily and bone marrow biopsy on 08/27/2022 was negative for residual AML Oral decitabine was switched to Inqovi for 3 days every 4 weeks. She has been on hold Continue acyclovir and voriconazole prophylaxis and start doxycycline she has been taking this and requesting for refills. I think patient can hold on acyclovir voriconazole and doxycycline as her counts are recovered and is not on active chemotherapy. Transfusion should be done with irradiated products only CBC/EKG monthly to monitor?ekg from 11/06 is concerning. EKG from December 2024 and showed infarction. Patient also have sinus bradycardia. Advised to follow-up with legal document specialist patient already have appointment . 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 Hypertension follow with the PCP Hypercholesterolemia follow with the PCP History of osteoporosis. Follow with the PCP Abscess drainage was done in the hospital and now feeling better Patient already follow with leukemia expert and is under care of Dr. Roberto. Will continue to follow her along ORDERS: Order # Description [id number] Comprehensive Metabolic Panel - 12 + CBC with Auto Diff RETURN TO CLINIC: I will see her back in the clinic in 2 months or as requested by patient BILLING AND COMPLIANCE: I reviewed external records from providers outside my specialty as summarized above. I spent a total of 50 minutes on this patient?s care on the day of their visit excluding time spent related to any billed procedures. This time includes time spent with the patient as well as time spent documenting in the medical record, reviewing patients records and tests, obtaining history, placing orders, communicating with other healthcare professionals, counseling the patient, family or caregiver, and/or care coordination for the diagnoses above. Electronically Signed by: Erick Bolton MD T: 10:37 PM CC: PCP: Shama Liao Referring: Shama Liao This document was completed utilizing speech recognition software. Grammatical errors, random word insertions, pronoun errors, and incomplete sentences are an occasional consequence of this system due to software limitations, ambient noise, and hardware issues. Any formal questions or concerns about the content, text or information contained within the body of this dictation should be directly addressed to the provider for clarification.
== END 2025-02-09 23:59 | disposition home or self-care (01) ==
LOC: SCTC 11:52
PROVIDERS: PCP Registered Nurse Community Health; Referring Provider Registered Nurse Community Health; Visit Provider Internal Medicine Hematology & Oncology
DX: C92.01 Acute myeloblastic leukemia, in remission (principal); R00.1 Bradycardia, unspecified; I35.8 Other nonrheumatic aortic valve disorders; I10 Essential (primary) hypertension; E78.00 Pure hypercholesterolemia, unspecified; M81.0 Age-related osteoporosis without current pathological fracture
CPT/HCPCS: 99212; G0463

== ENCOUNTER → 2025-04-01 | Outpatient (CLI) | payer MEDICAID, SELFPAY ==
--- NOTE | 2025-04-01 12:29 | XR_ITS ---
Examination: Shoulder,right, 3 views Technique: Shoulder AP internal rotation, AP external rotation, Y view shoulder, 3 views Exam date and time :April 01, 2025 1243 hours INDICATIONS: Patient fell 10 days ago with injury to the shoulder, shoulder pain. FINDINGS: Suspicious for acute fracture right humeral neck No shoulder dislocation IMPRESSION: Recommend CT examination shoulder follow-up to exclude acute fracture humeral neck
== END | disposition home or self-care (01) ==
LOC: CDIM 12:24
PROVIDERS: PCP Family Medicine
DX: S49.92XA Unspecified injury of left shoulder and upper arm, initial encounter (principal); W19.XXXA Unspecified fall, initial encounter
CPT/HCPCS: 73030

== ENCOUNTER → 2025-04-13 | Outpatient (CLI) | payer MEDICAID, SELFPAY ==
--- NOTE | 2025-04-13 10:23 | EKG_ITS ---
[facility] Test Date: 2025-04-13 Pat Name: EDENILSON STANTON Department: Room: - Gender: Female Rate Clerk: ARELI : 1945 Requested By: Erick Bolton Order Number: [id number] Reading MD: Erick Bolton Measurements Intervals [place] Rate: 56 P: 58 SC: 163 QRS: -27 QRSD: 99 T: 18 QT: 444 QTc: 432 Interpretive Statements SINUS BRADYCARDIA LEFT VENTRICULAR HYPERTROPHY AND ST-T CHANGE [VOLTAGE CRITERIA PLUS ST/T ABNORMALITY] POSSIBLE ANTERIOR MYOCARDIAL INFARCTION , OF INDETERMINATE AGE [30 ms Q WAVE IN V3/V4, OR R < 0.2 mV IN V4] Compared to ECG 01/07/2025 09:48:51 No significant changes /store/S0/[id number]/[id number]
== END | disposition home or self-care (01) ==
PROVIDERS: PCP Physician Assistant; Referring Provider Internal Medicine Hematology & Oncology; Visit Provider Internal Medicine Hematology & Oncology
DX: C92.50 Acute myelomonocytic leukemia, not having achieved remission (principal)
CPT/HCPCS: 93005

== ENCOUNTER 2025-05-16 13:08 | Outpatient (RCR) | payer MEDICAID, SELFPAY ==
--- NOTE | 2025-05-23 00:47 | CTCFLWUP_ITS ---
Patient: EDENILSON US : 1945 Page 2 of 3 FOLLOW UP NOTE DATE OF SERVICE: 05/16/2025 NAME: EDENILSON US ACCOUNT: [id number] : 1945 AGE: 80 INTERVAL HISTORY: Edenilson Us, an 80-year-old female, presented for cancer treatment follow-up. She has a 5-year history of cancer diagnosed in February 2020 and is currently in remission. Recent laboratory results showed stable hemoglobin, good platelet counts, and no detectable cancer cells in her blood. She is responding exceptionally well to Inqovi. The plan includes continuing Inqovi, reducing laboratory monitoring frequency to every 2-3 weeks, and scheduling a follow-up appointment in 2 months. Subjective Chief Complaint Follow-up for cancer treatment History of Present Illness Edenilson Us, an 80-year-old female with a history of cancer diagnosed in February 2020, presents for follow-up. She recently celebrated her birthday on [birth year]. The patient is currently in remission and reports doing well on her current treatment regimen. Edenilson is currently taking Inqovi as her only medication for cancer treatment. She has discontinued chemotherapy. The patient has been adhering to her prescribed treatment plan and appears to be responding well. Her oncologist, Dr. Go, has requested that she continue follow-up visits with this clinic for emergency management if needed. The patient's overall health status has significantly improved since her cancer diagnosis five years ago. She is described as doing so much better and radha, as her response to treatment has been exceptional compared to typical outcomes for her type of cancer. Edenilson's blood work from last shows improvement, with stable hemoglobin levels, good platelet counts, and no detectable cancer cells in her blood. Medications and Supplements - Inqovi - Working well for the patient's cancer - Patient has been in remission since starting this medication Objective Laboratory, Imaging, and Diagnostic Test Results - Date: FriMay 12 2025 () - CBC: Hemoglobin - stable (specific value not provided) - Platelets - looking good (specific value not provided) - No cancer cells detected in blood ONCOLOGY HISTORY: DIAGNOSIS: Acute myelomonocytic leukemia, not having achieved remission [ICD10] C92.50 DATE OF DIAGNOSIS: 12/01/2019 STAGE/TNM: Acute myeloid leukemia with NPM mutation TREATMENT HISTORY: Care?Plan Start?Date Cycle Day Intent Azacitadine 05/15/2020 1 28 Curative?(primary) KCL?20 06/15/2020 1 1 Palliative HISTORY OF PRESENT ILLNESS: Edenilson Elizabeth is a 80-year-old SPA speaking female with history of hypertension, hypercholesterolemia and osteoporosis had a CBC drawn on 07/23/2019. WBC was 2.0, absolute neutrophil count was 0.9. Hemoglobin 11.2, MCV 87, platelet count is 208,000. A hematology consultation is requested for neutropenia and leukopenia. 12/01/2019: WBC 1.7, ANC 0.7, hemoglobin 11.3, platelets 217,000. B12 467, folate more than 20.0. Hepatitis panel negative. ESR 19. LDH 180 12/28/2019: WBC 1.4, absolute neutrophil count 0.5, hemoglobin 11.1, platelets 207,000. 01/31/2020: WBC 1.2, absolute neutrophil count 0.3, immature cells 2%, hemoglobin 10.9, platelets 187,000. Hepatitis panel negative. Iron saturation 27%. B12 361, folate more than 20.0. LDH 202, ESR 37. 01/31/2020: Ultrasound of the liver and spleen?liver measures 15.4 cm. The hepatic contour is smooth. No hepatosplenomegaly noted 02/29/2020: Bone marrow biopsy and aspiration- 03/05/2020: Patient received first cycle of azacitidine and venetoclax. 05/15/2020: Patient received second cycle of azacitidine and venetoclax. 05/31/2020: Bone marrow biopsy and aspiration? 06/20/2020: Patient received third cycle of venetoclax and azacitidine. 07/24/2020?08/06/2020: Patient was admitted to [facility] for sepsis. 09/29/2020: Patient completed fourth cycle of Vidaza in [place]. 08/27/2022: Bone marrow biopsy and aspiration? 11/02/2024 EKG shows sinus bradycardia [place] present. 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 acyclovir - 400 mg 1 tab Twice a Day 2. levothyroxine - 88 mcg 1 Capsule Daily 3. losartan - 100 mg 1 tab Daily 4. Tibsovo - 250 mg 1 tab Daily 5. voriconazole - 200 mg 1 tab Twice a Day Medications Last Reconciled by Edenilson Pagan MA on 05/16/2025 ALLERGIES: No Known Drug Allergies REVIEW OF SYSTEMS: A complete 14-point review of systems was performed and is negative except as noted in interval history. PHYSICAL EXAMINATION: VITAL SIGNS: Temperature?98, B/P?144/80, Oxygen?Saturation?97% PAIN: 0 - No pain ECOG Performance Status: 0 - Asymptomatic and fully active GENERAL APPEARANCE: Appears well, in no apparent distress, appropriately interactive. HEENT: Normocephalic, no temporal wasting, normal conjunctiva, no scleral icterus, normal hearing, lips without lesions, neck normal range of motion. CARDIOVASCULAR: Not assessed. PULMONARY: Normal respiratory effort, abscess with drainage EXTREMITIES: No pedal edema or cyanosis. SKIN: Normal skin appearance. NEUROLOGIC: Alert and oriented x4. PSHYCHIATRIC: Appropriate affect, mood normal, behavior normal, intact thought and speech. LABORATORY DATA: I have personally reviewed and interpreted each of the patient?s relevant lab tests, abnormal findings are below: Date 11/20/24 11/21/24 ??WHITE?BLOOD?COUNT?(Thou/mm3) 2.5?L 3.2?L ??RED?BLOOD?COUNT?(Miln/mm3) 2.52?L 2.43?L ??HEMOGLOBIN?(gm/dl) 7.6?L 7.5?L ??HEMATOCRIT?(%) 23.5?L 22.6?L ??PLATELET?COUNT?(Thou/mm3) 48?L 38?L ??NEUTROPHILS?%,?AUTO?(%) 49 51 ??LYMPH?%,?AUTO?(%) 24 31 ??NEUTROPHILS,?AUTO?(Thou/mm3) 1.2?L 1.6?L ??GLUCOSE,RANDOM?(mg/dL) 88 91 ??BLOOD?UREA?NITROGEN?(mg/dL) 13 10 ??CREATININE?(mg/dL) 0.80 0.70 ??SODIUM?(mmol/L) 142 142 ??POTASSIUM?(mmol/L) 3.2?L 3.3?L ??CHLORIDE?(mmol/L) 107 109?H ??CrCl?(CandG)?(ml/min) 49.96 57.09 ??AST/SGOT?(Unit/L) 14 <?10 ??ALT/SGPT?(Unit/L) 19 12 ??ALKALINE?PHOSPHATASE?(Unit/L) 158?H 149?H ??BILIRUBIN,?TOTAL?(mg/dL) 0.6 0.5 ??PROTEIN?TOTAL?(gm/dl) 5.7 5.6?L ??ALBUMIN,?SERUM?(gm/dl) 3.5 3.5 ??GLOBULIN?(gm/dl) 2.2?L 2.1?L ??ALBUMIN/GLOBULIN?RATIO 1.6 1.7 ??CALCIUM,?SERUM?(mg/dL) 8.6 8.6 ??CALCIUM?SERUM?(CORRECTED)?(mg/dL) 9.0 9.0 ASSESSMENT/PLAN: 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 Roberto Ms. Us had bone marrow biopsy and aspiration done September 2024. She is in complete remission. Patient was started on ivosidenib 250 daily and bone marrow biopsy on 08/27/2022 was negative for residual AML Oral decitabine was switched to Inqovi for 3 days every 4 weeks ChenchoalpeshEdenilson croft, an 80-year-old female with a 5-year history of cancer, presenting for follow-up of her ongoing treatment with Inqovi. Patient has been diagnosed with AML cancer since February 2020, now in her 5th year of treatment. She is currently on Inqovi therapy, which appears to be effective. Recent blood work shows good hemoglobin and platelet levels, with no detectable cancer cells in the blood. The patient is considered to be in remission and is doing exceptionally well, which is noted as unusual for this type of cancer. The patient's response to treatment is considered remarkable given the typical prognosis for this condition. Plan: - Continue current treatment with Inqovi (dose not specified) - Reduce frequency of lab work from weekly to every 2-3 weeks - Follow-up appointment in 2 months - Maintain current management approach given the positive response to treatment - Continue follow-up with both the oncology team and Dr. Go for comprehensive care ORDERS: Order # Description [id number] Comprehensive Metabolic Panel - 12 + CBC with Auto Diff + MD Follow Up 3 Months [id number] Iron Panel + Ferritin + Vitamin B-12 + Folic Acid; Serum RETURN TO CLINIC: I reviewed the diagnosis, prognosis, and recommended treatment/procedure options with the patient (and/or their legal field support representative), including the potential benefits, risks, side effects and alternative therapies. We also discussed the option of no treatment and the possibility of clinical trial participation, if applicable. All questions were addressed, and they demonstrated understanding. They provided informed consent to proceed with the proposed plan of care. BILLING AND COMPLIANCE: I reviewed external records from providers outside my specialty as summarized above. I spent a total of 50 minutes on this patient?s care on the day of their visit excluding time spent related to any billed procedures. This time includes time spent with the patient as well as time spent documenting in the medical record, reviewing patients records and tests, obtaining history, placing orders, communicating with other healthcare professionals, counseling the patient, family or caregiver, and/or care coordination for the diagnoses above. Electronically Signed by: Erick Bolton MD T: 12:45 AM CC: PCP: Erick Bolton Referring: Erick Bolton This document was completed utilizing speech recognition software. Grammatical errors, random word insertions, pronoun errors, and incomplete sentences are an occasional consequence of this system due to software limitations, ambient noise, and hardware issues. Any formal questions or concerns about the content, text or information contained within the body of this dictation should be directly addressed to the provider for clarification.
== END 2025-06-12 23:59 | disposition home or self-care (01) ==
LOC: SCTC 13:08
PROVIDERS: PCP Specialist; Referring Provider Internal Medicine Hematology & Oncology; Visit Provider Internal Medicine Hematology & Oncology
DX: C92.01 Acute myeloblastic leukemia, in remission (principal)
CPT/HCPCS: 99213; G0463

== ENCOUNTER → 2025-06-24 | Outpatient (CLI) | payer MEDICAID, SELFPAY ==
--- NOTE | 2025-06-24 09:57 | EKG_ITS ---
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 : 1945 Requested By: Erick Bolton Order Number: [id number] Reading MD: Erick Bolton Measurements Intervals [place] Rate: 55 P: 50 [place]: 172 QRS: -31 QRSD: 110 T: 4 QT: 451 QTc: 432 Interpretive Statements SINUS BRADYCARDIA WITH SINUS ARRHYTHMIA MARKED LEFT AXIS DEVIATION [QRS AXIS < -30] LOW QRS VOLTAGE IN PRECORDIAL LEADS [QRS DEFLECTION < 1.0 mV IN CHEST LEADS] LEFT VENTRICULAR HYPERTROPHY AND ST-T CHANGE [VOLTAGE CRITERIA PLUS ST/T ABNORMALITY] POSSIBLE ANTERIOR MYOCARDIAL INFARCTION , OF INDETERMINATE AGE [30 ms Q WAVE IN V3/V4, OR R < 0.2 mV IN V4] Compared to ECG 04/13/2025 10:26:03 Left-axis deviation now present Low QRS voltage now present ST (T wave) deviation still present Myocardial infarct finding still present /store/S0/[id number].pdf
== END | disposition home or self-care (01) ==
LOC: SEKG 08:31
PROVIDERS: PCP Family Medicine; Referring Provider Internal Medicine Hematology & Oncology; Visit Provider Internal Medicine Hematology & Oncology
DX: C92.50 Acute myelomonocytic leukemia, not having achieved remission (principal)
CPT/HCPCS: 93005

== ENCOUNTER 2025-07-18 09:39 | Outpatient (RCR) | payer MEDICAID, SELFPAY ==
--- NOTE | 2025-07-18 10:37 | CTCFLWUP_ITS ---
Patient: EDENILSON US : 1945 Page 4 of 6 FOLLOW UP NOTE DATE OF SERVICE: 07/18/2025 NAME: EDENILSON US ACCOUNT: [id number] : 1945 AGE: 80 INTERVAL HISTORY: Edenilson Us, an 80-year-old female, presented for cancer treatment follow-up. She has a 5-year history of cancer diagnosed in February 2020 and is currently in remission. Recent laboratory results showed stable hemoglobin, good platelet counts, and no detectable cancer cells in her blood. She is responding exceptionally well to Inqovi. Patient is noted to have changes on her EKG concerning for acute on chronic myocardial infarction. Patient have her radiology asst and follows at [place] but do not go to see him every month. Patient requested to follow-up locally and a new radiology asst referral made to the local radiology asst. Subjective Chief Complaint Follow-up for cancer treatment History of Present Illness Edenilson Us, an 80-year-old female with a history of cancer diagnosed in February 2020, presents for follow-up. She recently celebrated her birthday on [birth year]. The patient is currently in remission and reports doing well on her current treatment regimen. Edenilson is currently taking Inqovi as her only medication for cancer treatment. She has discontinued chemotherapy. The patient has been adhering to her prescribed treatment plan and appears to be responding well. Her oncologist, Dr. Go, has requested that she continue follow-up visits with this clinic for emergency management if needed. The patient's overall health status has significantly improved since her cancer diagnosis five years ago. She is described as doing so much better and radha, as her response to treatment has been exceptional compared to typical outcomes for her type of cancer. Edenilson's blood work from last shows improvement, with stable hemoglobin levels, good platelet counts, and no detectable cancer cells in her blood. Medications and Supplements - Inqovi - Working well for the patient's cancer - Patient has been in remission since starting this medication Objective Laboratory, Imaging, and Diagnostic Test Results - Date: FriMay 12 2025 (last ) - CBC: Hemoglobin - stable (specific value not provided) - Platelets - looking good (specific value not provided) - No cancer cells detected in blood ONCOLOGY HISTORY: DIAGNOSIS: Acute myelomonocytic leukemia, not having achieved remission [ICD10] C92.50 DATE OF DIAGNOSIS: 12/01/2019 STAGE/TNM: Acute myeloid leukemia with NPM mutation TREATMENT HISTORY: Care?Plan Start?Date Cycle Day Intent Azacitadine 05/15/2020 1 28 Curative?(primary) KCL?20 06/15/2020 1 1 Palliative HISTORY OF PRESENT ILLNESS: Edenilson Elizabeth is a 80-year-old SPA speaking female with history of hypertension, hypercholesterolemia and osteoporosis had a CBC drawn on 07/23/2019. WBC was 2.0, absolute neutrophil count was 0.9. Hemoglobin 11.2, MCV 87, platelet count is 208,000. A hematology consultation is requested for neutropenia and leukopenia. 12/01/2019: WBC 1.7, ANC 0.7, hemoglobin 11.3, platelets 217,000. B12 467, folate more than 20.0. Hepatitis panel negative. ESR 19. LDH 180 12/28/2019: WBC 1.4, absolute neutrophil count 0.5, hemoglobin 11.1, platelets 207,000. 01/31/2020: WBC 1.2, absolute neutrophil count 0.3, immature cells 2%, hemoglobin 10.9, platelets 187,000. Hepatitis panel negative. Iron saturation 27%. B12 361, folate more than 20.0. LDH 202, ESR 37. 01/31/2020: Ultrasound of the liver and spleen?liver measures 15.4 cm. The hepatic contour is smooth. No hepatosplenomegaly noted 02/29/2020: Bone marrow biopsy and aspiration- 03/05/2020: Patient received first cycle of azacitidine and venetoclax. 05/15/2020: Patient received second cycle of azacitidine and venetoclax. 05/31/2020: Bone marrow biopsy and aspiration? 06/20/2020: Patient received third cycle of venetoclax and azacitidine. 07/24/2020?08/06/2020: Patient was admitted to [facility] for sepsis. 09/29/2020: Patient completed fourth cycle of Vidaza in [place]. 08/27/2022: Bone marrow biopsy and aspiration? 11/02/2024 EKG shows sinus bradycardia [place] present. 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 acyclovir - 400 mg 1 tab Twice a Day 2. levothyroxine - 88 mcg 1 Capsule Daily 3. losartan - 100 mg 1 tab Daily 4. Tibsovo - 250 mg 1 tab Daily 5. voriconazole - 200 mg 1 tab Twice a Day Medications Last Reconciled by Edenilson Neely MD on 07/18/2025 ALLERGIES: No Known Drug Allergies REVIEW OF SYSTEMS: A complete 14-point review of systems was performed and is negative except as noted in interval history. PHYSICAL EXAMINATION: VITAL SIGNS: GENERAL APPEARANCE: Appears well, in no apparent distress, appropriately interactive. HEENT: Normocephalic, no temporal wasting, normal conjunctiva, no scleral icterus, normal hearing, lips without lesions, neck normal range of motion. CARDIOVASCULAR: Not assessed. PULMONARY: Normal respiratory effort, abscess with drainage EXTREMITIES: No pedal edema or cyanosis. SKIN: Normal skin appearance. NEUROLOGIC: Alert and oriented x4. PSHYCHIATRIC: Appropriate affect, mood normal, behavior normal, intact thought and speech. LABORATORY DATA: I have personally reviewed and interpreted each of the patient?s relevant lab tests, abnormal findings are below: Date 11/20/24 11/21/24 ??WHITE?BLOOD?COUNT?(Thou/mm3) 2.5?L 3.2?L ??RED?BLOOD?COUNT?(Miln/mm3) 2.52?L 2.43?L ??HEMOGLOBIN?(gm/dl) 7.6?L 7.5?L ??HEMATOCRIT?(%) 23.5?L 22.6?L ??PLATELET?COUNT?(Thou/mm3) 48?L 38?L ??NEUTROPHILS?%,?AUTO?(%) 49 51 ??LYMPH?%,?AUTO?(%) 24 31 ??NEUTROPHILS,?AUTO?(Thou/mm3) 1.2?L 1.6?L ??GLUCOSE,RANDOM?(mg/dL) 88 91 ??BLOOD?UREA?NITROGEN?(mg/dL) 13 10 ??CREATININE?(mg/dL) 0.80 0.70 ??SODIUM?(mmol/L) 142 142 ??POTASSIUM?(mmol/L) 3.2?L 3.3?L ??CHLORIDE?(mmol/L) 107 109?H ??CrCl?(CandG)?(ml/min) 49.96 57.09 ??AST/SGOT?(Unit/L) 14 <?10 ??ALT/SGPT?(Unit/L) 19 12 ??ALKALINE?PHOSPHATASE?(Unit/L) 158?H 149?H ??BILIRUBIN,?TOTAL?(mg/dL) 0.6 0.5 ??PROTEIN?TOTAL?(gm/dl) 5.7 5.6?L ??ALBUMIN,?SERUM?(gm/dl) 3.5 3.5 ??GLOBULIN?(gm/dl) 2.2?L 2.1?L ??ALBUMIN/GLOBULIN?RATIO 1.6 1.7 ??CALCIUM,?SERUM?(mg/dL) 8.6 8.6 ??CALCIUM?SERUM?(CORRECTED)?(mg/dL) 9.0 9.0 ASSESSMENT/PLAN: 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 Roberto Ms. Us had bone marrow biopsy and aspiration done September 2024. She is in complete remission. Patient was started on ivosidenib 250 daily and bone marrow biopsy on 08/27/2022 was negative for residual AML Oral decitabine was switched to Inqovi for 3 days every 4 weeks Edenilson Us, an 80-year-old female with a 5-year history of cancer, presenting for follow-up of her ongoing treatment with Inqovi. Patient has been diagnosed with AML cancer since February 2020, now in her 5th year of treatment. She is currently on Inqovi therapy, which appears to be effective. Recent blood work shows good hemoglobin and platelet levels, with no detectable cancer cells in the blood. The patient is considered to be in remission and is doing exceptionally well, which is noted as unusual for this type of cancer. The patient's response to treatment is considered remarkable given the typical prognosis for this condition. Plan: - Continue current treatment with Inqovi (dose not specified) - Continue follow-up with both the oncology team and Dr. Go for comprehensive care -Follow-up with radiology asst regarding EKG changes ORDERS: Order # Description [id number] Iron Panel + Ferritin + Vitamin B-12 + Folic Acid; Serum [id number] Follow Up 2 Months [id number] RETURN TO CLINIC: I reviewed the diagnosis, prognosis, and recommended treatment/procedure options with the patient (and/or their legal order entry representative), including the potential benefits, risks, side effects and alternative therapies. We also discussed the option of no treatment and the possibility of clinical trial participation, if applicable. All questions were addressed, and they demonstrated understanding. They provided informed consent to proceed with the proposed plan of care. BILLING AND COMPLIANCE: I reviewed external records from providers outside my specialty as summarized above. I spent a total of 50 minutes on this patient?s care on the day of their visit excluding time spent related to any billed procedures. This time includes time spent with the patient as well as time spent documenting in the medical record, reviewing patients records and tests, obtaining history, placing orders, communicating with other healthcare professionals, counseling the patient, family or caregiver, and/or care coordination for the diagnoses above. Electronically Signed by: Erick Bolton MD T: 10:35 AM CC: PCP: Erick Bolton Referring: Amador Joshua This document was completed utilizing speech recognition software. Grammatical errors, random word insertions, pronoun errors, and incomplete sentences are an occasional consequence of this system due to software limitations, ambient noise, and hardware issues. Any formal questions or concerns about the content, text or information contained within the body of this dictation should be directly addressed to the provider for clarification.
== END 2025-08-12 23:59 | disposition home or self-care (01) ==
LOC: SCTC 09:39
PROVIDERS: PCP Specialist; Referring Provider Family Medicine; Visit Provider Internal Medicine Hematology & Oncology
DX: C92.01 Acute myeloblastic leukemia, in remission (principal)
CPT/HCPCS: 99212; G0463

== ENCOUNTER → 2025-07-22 | Outpatient (CLI) | payer MEDICAID, SELFPAY ==
--- NOTE | 2025-07-22 08:51 | EKG_ITS ---
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: [id number] : 1945 Requested By: Erick Bolton Order Number: [id number] Reading MD: Erick Bolton Measurements Intervals [place] Rate: 59 P: 59 [place]: 177 QRS: -27 QRSD: 91 T: 32 QT: 403 QTc: 400 Interpretive Statements SINUS BRADYCARDIA LEFT VENTRICULAR HYPERTROPHY AND ST-T CHANGE [VOLTAGE CRITERIA PLUS ST/T ABNORMALITY] POSSIBLE ANTERIOR MYOCARDIAL INFARCTION , OF INDETERMINATE AGE [30 ms Q WAVE IN V3/V4, OR R < 0.2 mV IN V4] Compared to ECG 06/24/2025 10:03:38 Sinus arrhythmia no longer present Left-axis deviation no longer present ST (T wave) deviation still present Myocardial infarct finding still present /store/S0/[id number]/ecg/[id number].pdf
== END | disposition home or self-care (01) ==
PROVIDERS: PCP Specialist; Referring Provider Internal Medicine Hematology & Oncology; Visit Provider Internal Medicine Hematology & Oncology
DX: C92.50 Acute myelomonocytic leukemia, not having achieved remission (principal)
CPT/HCPCS: 93005

== ENCOUNTER → 2025-08-22 | Outpatient (CLI) | payer MEDICAID, SELFPAY ==
--- NOTE | 2025-08-22 08:51 | EKG_ITS ---
[facility] Test Date: 2025-08-22 Pat Name: EDENILSON STANTON Department: Room: - Gender: Female Ged Teacher: BRANNON : 1945 Requested By: Erick Bolton Order Number: [id number] Reading MD: Erick Bolton Measurements Intervals [place] Rate: 54 P: 40 MO: 172 QRS: -16 QRSD: 109 T: 64 QT: 416 QTc: 397 Interpretive Statements SINUS BRADYCARDIA LOW QRS VOLTAGE IN PRECORDIAL LEADS [QRS DEFLECTION < 1.0 mV IN CHEST LEADS] LEFT VENTRICULAR HYPERTROPHY AND ST-T CHANGE [VOLTAGE CRITERIA PLUS ST/T ABNORMALITY] POSSIBLE ANTEROSEPTAL MYOCARDIAL INFARCTION , OF INDETERMINATE AGE [30 ms Q WAVE IN V1-V4] Compared to ECG 07/22/2025 08:54:49 Low QRS voltage now present ST (T wave) deviation still present Myocardial infarct finding still present /store/S0/[id number]/ecg/[id number].pdf
== END | disposition home or self-care (01) ==
PROVIDERS: PCP Specialist; Referring Provider Internal Medicine Hematology & Oncology; Visit Provider Internal Medicine Hematology & Oncology
DX: C92.50 Acute myelomonocytic leukemia, not having achieved remission (principal)
CPT/HCPCS: 93005

== ENCOUNTER 2025-09-19 09:05 | Outpatient (RCR) | payer MEDICAID, SELFPAY ==
--- NOTE | 2025-09-19 10:32 | CTCFLWUP_ITS ---
Patient: MONIE US : 1945 Page 5 of 5 FOLLOW UP NOTE DATE OF SERVICE: 09/19/2025 NAME: MONIE US ACCOUNT: [id number] : 1945 AGE: 80 INTERVAL HISTORY: He Monie Us, an 80-year-old female, presented for cancer treatment follow-up. She has a 5-year history of cancer diagnosed in February 2020 and is currently in remission. Recent laboratory results showed stable hemoglobin, good platelet counts, and no detectable cancer cells in her blood. She is responding exceptionally well to Inqovi. Patient is noted to have changes on her EKG concerning for acute on chronic myocardial infarction. Patient have her information services manager and follows at [place]. Patient will be continue to follow-up with Dr. Roberto and follow-up with us on as needed basis. . Medications and Supplements - Inqovi - Working well for the patient's cancer - Patient has been in remission since starting this medication Objective Laboratory, Imaging, and Diagnostic Test Results - Date: FriMay 12 2025 (last ) - CBC: Hemoglobin - stable (specific value not provided) - Platelets - looking good (specific value not provided) - No cancer cells detected in blood ONCOLOGY HISTORY: DIAGNOSIS: Acute myelomonocytic leukemia, not having achieved remission [ICD10] C92.50 DATE OF DIAGNOSIS: 12/01/2019 STAGE/TNM: Acute myeloid leukemia with NPM mutation TREATMENT HISTORY: Care?Plan Start?Date Cycle Day Intent Azacitadine 05/15/2020 1 28 Curative?(primary) KCL?20 06/15/2020 1 1 Palliative HISTORY OF PRESENT ILLNESS: Monie Elizabeth is a 80-year-old SPA speaking female with history of hypertension, hypercholesterolemia and osteoporosis had a CBC drawn on 07/23/2019. WBC was 2.0, absolute neutrophil count was 0.9. Hemoglobin 11.2, MCV 87, platelet count is 208,000. A hematology consultation is requested for neutropenia and leukopenia. 12/01/2019: WBC 1.7, ANC 0.7, hemoglobin 11.3, platelets 217,000. B12 467, folate more than 20.0. Hepatitis panel negative. ESR 19. LDH 180 12/28/2019: WBC 1.4, absolute neutrophil count 0.5, hemoglobin 11.1, platelets 207,000. 01/31/2020: WBC 1.2, absolute neutrophil count 0.3, immature cells 2%, hemoglobin 10.9, platelets 187,000. Hepatitis panel negative. Iron saturation 27%. B12 361, folate more than 20.0. LDH 202, ESR 37. 01/31/2020: Ultrasound of the liver and spleen?liver measures 15.4 cm. The hepatic contour is smooth. No hepatosplenomegaly noted 02/29/2020: Bone marrow biopsy and aspiration- 03/05/2020: Patient received first cycle of azacitidine and venetoclax. 05/15/2020: Patient received second cycle of azacitidine and venetoclax. 05/31/2020: Bone marrow biopsy and aspiration? 06/20/2020: Patient received third cycle of venetoclax and azacitidine. 07/24/2020?08/06/2020: Patient was admitted to [facility] for sepsis. 09/29/2020: Patient completed fourth cycle of Vidaza in [place]. 08/27/2022: Bone marrow biopsy and aspiration? 11/02/2024 EKG shows sinus bradycardia RI present. 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 acyclovir - 400 mg 1 tab Twice a Day 2. levothyroxine - 88 mcg 1 Capsule Daily 3. losartan - 100 mg 1 tab Daily 4. Tibsovo - 250 mg 1 tab Daily 5. voriconazole - 200 mg 1 tab Twice a Day Medications Last Reconciled by Monie Neely MD on 07/18/2025 (Reconcile on Approval: ?) ALLERGIES: No Known Drug Allergies REVIEW OF SYSTEMS: A complete 14-point review of systems was performed and is negative except as noted in interval history. PHYSICAL EXAMINATION: VITAL SIGNS: Temperature?99.3, B/P?152/78, Oxygen?Saturation?98% Weight?158?lbs PAIN: 0 - No pain ECOG Performance Status: 0 - Asymptomatic and fully active GENERAL APPEARANCE: Appears well, in no apparent distress, appropriately interactive. HEENT: Normocephalic, no temporal wasting, normal conjunctiva, no scleral icterus, normal hearing, lips without lesions, neck normal range of motion. CARDIOVASCULAR: Not assessed. PULMONARY: Normal respiratory effort, abscess with drainage EXTREMITIES: No pedal edema or cyanosis. SKIN: Normal skin appearance. NEUROLOGIC: Alert and oriented x4. PSHYCHIATRIC: Appropriate affect, mood normal, behavior normal, intact thought and speech. LABORATORY DATA: I have personally reviewed and interpreted each of the patient?s relevant lab tests, abnormal findings are below: Date 11/20/24 11/21/24 ??WHITE?BLOOD?COUNT?(Thou/mm3) 2.5?L 3.2?L ??RED?BLOOD?COUNT?(Miln/mm3) 2.52?L 2.43?L ??HEMOGLOBIN?(gm/dl) 7.6?L 7.5?L ??HEMATOCRIT?(%) 23.5?L 22.6?L ??PLATELET?COUNT?(Thou/mm3) 48?L 38?L ??NEUTROPHILS?%,?AUTO?(%) 49 51 ??LYMPH?%,?AUTO?(%) 24 31 ??NEUTROPHILS,?AUTO?(Thou/mm3) 1.2?L 1.6?L ??GLUCOSE,RANDOM?(mg/dL) 88 91 ??BLOOD?UREA?NITROGEN?(mg/dL) 13 10 ??CREATININE?(mg/dL) 0.80 0.70 ??SODIUM?(mmol/L) 142 142 ??POTASSIUM?(mmol/L) 3.2?L 3.3?L ??CHLORIDE?(mmol/L) 107 109?H ??CrCl?(CandG)?(ml/min) 49.96 57.09 ??AST/SGOT?(Unit/L) 14 <?10 ??ALT/SGPT?(Unit/L) 19 12 ??ALKALINE?PHOSPHATASE?(Unit/L) 158?H 149?H ??BILIRUBIN,?TOTAL?(mg/dL) 0.6 0.5 ??PROTEIN?TOTAL?(gm/dl) 5.7 5.6?L ??ALBUMIN,?SERUM?(gm/dl) 3.5 3.5 ??GLOBULIN?(gm/dl) 2.2?L 2.1?L ??ALBUMIN/GLOBULIN?RATIO 1.6 1.7 ??CALCIUM,?SERUM?(mg/dL) 8.6 8.6 ??CALCIUM?SERUM?(CORRECTED)?(mg/dL) 9.0 9.0 ASSESSMENT/PLAN: 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 by Dr. Roberto Ms. Us had bone marrow biopsy and aspiration done September 2024. She is in complete remission. Patient was started on ivosidenib 250 daily and bone marrow biopsy on 08/27/2022 was negative for residual AML Oral decitabine was switched to Inqovi for 3 days every 4 weeks Monie Us, an 80-year-old female with a 5-year history of cancer, presenting for follow-up of her ongoing treatment with Inqovi. Patient has been diagnosed with AML cancer since February 2020, now in her 5th year of treatment. She is currently on Inqovi therapy, which appears to be effective. Recent blood work shows good hemoglobin and platelet levels, with no detectable cancer cells in the blood. The patient is considered to be in remission and is doing exceptionally well, which is noted as unusual for this type of cancer. The patient's response to treatment is considered remarkable given the typical prognosis for this condition. Plan: - Continue current treatment with Inqovi (dose not specified) - Continue follow-up with both the oncology team and Dr. Go for comprehensive care ` ORDERS: Order # Description [id number] Comprehensive Metabolic Panel - 12 + CBC with Auto Diff [id number] Iron Panel + Ferritin + Vitamin B-12 + Folic Acid; Serum [id number] Return to PCP for routine care. Follow up with Oncologist upon referral of PCP RETURN TO CLINIC: I reviewed the diagnosis, prognosis, and recommended treatment/procedure options with the patient (and/or their legal real estate representative), including the potential benefits, risks, side effects and alternative therapies. We also discussed the option of no treatment and the possibility of clinical trial participation, if applicable. All questions were addressed, and they demonstrated understanding. They provided informed consent to proceed with the proposed plan of care. BILLING AND COMPLIANCE: I reviewed external records from providers outside my specialty as summarized above. I spent a total of 50 minutes on this patient?s care on the day of their visit excluding time spent related to any billed procedures. This time includes time spent with the patient as well as time spent documenting in the medical record, reviewing patients records and tests, obtaining history, placing orders, communicating with other healthcare professionals, counseling the patient, family or caregiver, and/or care coordination for the diagnoses above. Electronically Signed by: {Object.Sanct_ID*PnP.NameFL@M}, {Object.Sanct_ID*PnP.Suffix@U} D: {Object.Sanct_Date} T: {Object.Sanct_Time} CC: PCP: Sophy Kunz Referring: Sophy Kunz This document was completed utilizing speech recognition software. Grammatical errors, random word insertions, pronoun errors, and incomplete sentences are an occasional consequence of this system due to software limitations, ambient noise, and hardware issues. Any formal questions or concerns about the content, text or information contained within the body of this dictation should be directly addressed to the provider for clarification.
== END 2025-10-12 23:59 | disposition home or self-care (01) ==
LOC: SCTC 09:05
PROVIDERS: PCP Specialist; Referring Provider Specialist; Visit Provider Internal Medicine Hematology & Oncology
DX: C92.01 Acute myeloblastic leukemia, in remission (principal)
CPT/HCPCS: 99213; G0463

== ENCOUNTER → 2025-09-28 | Outpatient (CLI) | payer MEDICAID, SELFPAY ==
--- NOTE | 2025-09-28 09:31 | EKG_ITS ---
[facility] Test Date: 2025-09-28 Pat Name: EDENILSON STANTON Department: Room: - Gender: Female Geomagnetist: PAMELA : 1945 Requested By: Erick Bolton Order Number: [id number] Reading MD: Erick Bolton Measurements Intervals Squire Rate: 54 P: 66 NE: 160 QRS: 1 QRSD: 108 T: 52 QT: 435 QTc: 415 Interpretive Statements SINUS BRADYCARDIA WITH OCCASIONAL ECTOPIC PREMATURE COMPLEXES LOW QRS VOLTAGE IN PRECORDIAL LEADS [QRS DEFLECTION < 1.0 mV IN CHEST LEADS] POSSIBLE ANTERIOR MYOCARDIAL INFARCTION , OF INDETERMINATE AGE [30 ms Q WAVE IN V3/V4, OR R < 0.2 mV IN V4] Compared to ECG 08/22/2025 08:57:03 Left ventricular hypertrophy no longer present ST (T wave) deviation no longer present Myocardial infarct finding still present /store/S0/[id number].pdf
== END | disposition home or self-care (01) ==
PROVIDERS: PCP Physician Assistant; Referring Provider Internal Medicine Hematology & Oncology; Visit Provider Internal Medicine Hematology & Oncology
DX: C92.50 Acute myelomonocytic leukemia, not having achieved remission (principal)
CPT/HCPCS: 93005